=== PATIENT | female | born 1990 | race African-American/Black ===

== ENCOUNTER 2023-10-09 18:19 | Emergency (ER) | payer MEDICARE, MEDICAID, SELFPAY ==
--- NOTE | 2023-10-09 18:30 | ED_ITS ---
HPI - Seizure General Chief Complaint: Seizure Stated Complaint: unwitnessed sz Time Seen by Provider: 10/09/23 18:28 Source: patient and EMS Mode of arrival: EMS Limitations: no limitations History of Present Illness ED Provider: Izzy Quintana NP HPI Narrative: Patient is a 32-year-old female with history of seizure disorder previously on Keppra which was discontinued by her neurologist at the time 3-4 years ago after negative EEG x 1 week presenting to the ED with complaint of seizure prior to arrival. She states that she had an aura of tingling to both hands which is abnormal for her. She reports that after seizure lessened, she used her [employer] to call her brother for help. EMS reported some mild seizure-like activity on their arrival. Patient states that she was on her bed the entire time and did not fall to the floor. She denies any urinary incontinence. Denies recent illness but does report recent increased stressors including housing situation. Denies any drug or alcohol use [employer]. Denies headache or vision changes. Denies recent fevers. Denies any chest pain or dyspnea. MD complaint: seizure Onset (ago): minute(s) Description of Episode: tonic-clonic movement Duration of episode: 2 -: minutes(s) Witnessed: Yes - by Other (brother) Trauma: No Seizure History: Yes Place: Home Possible Precipitating Event: stress Associated symptoms: denies other symptoms Treatments prior to arrival: other (zofran from ems) Related Data Previous Rx's ?Medication ?Instructions ?Recorded magnesium oxide 400 mg PO DAILY #3 caps 10/10/23 Allergies Allergy/AdvReac Type Severity Reaction Status Date / Time No Known Allergies Allergy Verified 10/09/23 18:39 Review of Systems 2 Review of Systems: As per HPI. Yes all other systems are reviewed and are negative Constitutional: Constitutional: Reports as per HPI PMF Social History Social History Alcohol intake: current Alcohol intake frequency: a few times a month Alcohol type: hard liquor Smoked in Last 30 Days: No Use of substances other than those prescribed or required for medical reasons: No Advance Directives: No Advance Directives Information Provided: No Do you have a plan to hurt others: No Plan Patient : No Physical Exam 2 Vital Signs: Vital Signs: Last Vital Signs Temp 97.8 F 10/09/23 23:03 Pulse 92 10/09/23 23:03 Resp 16 10/09/23 23:03 BP 127/81 10/09/23 23:03 Pulse Ox 99 10/09/23 18:35 O2 Del Method Room Air 10/09/23 23:03 BMI result Body Mass Index 23.1 Vital signs have been reviewed and appear to be correct. Blood pressure normal. Heart rate normal. Respiratory rate normal. Temperature normal. Oxygen saturation normal. Const: General: cooperative, healthy appearing and no acute distress O rientation/consciousness: oriented to person, oriented to place, oriented to time and patient oriented x3 Limitations: no limitations HEENT: Head: Yes normocephalic and Yes atraumatic Ears: external ears normal General nose exam: Normal external nose present Face and sinus: Yes face symmetric Mouth: oropharynx normal and moist mucous membranes Throat: Yes uvula midline Eyes: Pupils: Equal, round and reactive pupils present Neck: Neck: Yes normal visual inspection and Yes supple Resp: Effort & Inspection: normal respiratory effort and able to speak in complete sentences Auscultation: clear to auscultation bilaterally Cardio: Rate: regular rate Rhythm: regular rhythm Heart sounds: S1 normal heart sound present and S2 normal heart sound present GI: Palpation (GI): Soft to palpation and nontender Auscultation: n ormoactive bowel sounds : General: Yes no CVA tenderness Back/Spine/Pelvis: Back: no CVA tenderness Skin: General skin exam: elasticity normal and turgor normal Neuro: General: oriented to person, oriented to place, oriented to time, patient oriented x3, moves all extremities, no focal motor deficits and CN's II- XI intact bilaterally Cranial nerves: Yes Equal, round and reactive pupils present Cognition (Neuro): normal cognition Extrem: General: Yes full ROM, Yes no pedal edema and Yes no calf tenderness Psych: Mental Status: mental status grossly normal Affect: Anxious affect present Thought process: Normal thought process present Medications Administered Discontinued Medications Generic Name Dose Route Start Last Admin Trade Name Freq PRN Reason Stop Dose Admin Acetaminophen 975 mg 10/09/23 20:16 10/09/23 20:24 Acetaminophen 325 Mg Tablet PO 10/09/23 20:17 975 mg ONCE ONE Administration Magnesium Sulfate 2 gm in 50 mls @ 25 mls/hr 10/09/23 20:20 10/09/23 22:00 Magnesium Sulfate/H2o IV 10/09/23 22:19 Infused ONCE ONE Infusion Lorazepam 1 mg 10/09/23 20:16 10/09/23 20:24 Lorazepam 1 Mg Tablet PO 10/09/23 20:17 1 mg ONCE ONE Administration Medical Decision Making Medical Decision Making [facility] Narrative: Patient is a 32-year-old female with history of seizure disorder previously on Keppra which was discontinued by her neurologist at the time 3-4 years ago after negative EEG x 1 week presenting to the ED with complaint of seizure prior to arrival. On exam patient is awake, A+Ox3, VS WNL, afebrile, normal neurological exam without focal deficits, physical exam findings as above. Given reported symptoms and physical exam findings, initial differential includes electrolyte abnormality, viral infection, toxin, etoh withdrawal, pseudoseizure. Labs notable for hypomagnesemia, normal lactic, mildly elevated LFTs, mild anemia. IV magnesium ordered as well as lorazepam for anxiety and acetaminophen for headache which developed while in the ED. Magnesium level rechecked and now within normal limits. Will discharge patient home on oral magnesium for 3 days and have her follow-up with PCP for recheck of labs this week. Will refer to Neurology for further evaluation of symptoms. Given reported recent stressors and anxiety, feel may have been pseudo seizure. Return precautions discussed with patient. Patient verbalized understanding of and agreement with plan. Differential Diagnosis Differential Diagnoses: The differential diagnosis associated with the presentation includes As per [facility]. Admission/Observation Consideration of admission/observation: Escalation of care including admission/observation considered Patient would have been admitted to the hospital had their work up had any findings where hospital admission was appropriate and their clinical presentation warranted hospital admission. Lab Data [facility] Lab Attestation statement: I reviewed the patient's lab results. as per [facility] 10/09/23 19:43 10/09/23 19:43 Labs: Lab Results 10/09/23 10/10/23 Range/Units 19:43 00:18 WBC 5.5 (4.8-10.8) X10*3/uL RBC 3.22 L (4.20-5.50) X10*6/uL Hgb 11.1 L (12.0-16.0) g/dl Hct 31.6 L (37.0-47.0) % MCV 98.1 H (80.0-98.0) fL MCH 34.5 H (27.0-33.0) pg MCHC 35.1 H (31.0-35.0) g/dl RDW 13.4 (11.0-16.0) % Plt Count 241 (160-400) X10*3/uL MPV 8.9 L (9.4-12.3) fL Immature Gran % (Auto) 0.2 (0.0-0.4) % Neut % (Auto) 80.4 H (45-73) % Lymph % (Auto) 11.7 L (20-40) % [place] % (Auto) 7.0 (2-11) % Eos % (Auto) 0.0 (0-4) % Baso % (Auto) 0.7 (0-2) % Lymph # (Auto) 0.7 L (1.2-4.9) X10*3/uL [place] # (Auto) 0.4 (0.1-1.2) X10*3/uL Eos # (Auto) 0.0 (0.0-0.4) X10*3/uL Baso # (Auto) 0.0 (0.0-0.2) X10*3/uL Abs Immat Gran (auto) 0.01 (0.00-0.03) X10*3/uL Absolute Neuts (auto) 4.5 (2.0-8.3) x10*3/uL Absolute Nucleated RBC 0.000 (0.0-0.012) X10*3/uL Nucleated RBC % (auto) 0.0 (0.0-0.2) /100WBC Sodium 143 (135-145) mmol/L Potassium 3.3 (3.3-5.1) mmol/L Chloride 104 (96-108) mmol/L Carbon Dioxide 20 L (22-29) mmol/L Anion Gap 22 H (12-20) BUN 14 (9-16) mg/dL Creatinine 0.79 (0.5-1.4) mg/dL Estim Creat Clear Calc 104.0 Estimated GFR > 60 Random Glucose 93 (60-115) mg/dL Lactic Acid 1.7 (0.5-2.0) mmol/L Calcium 8.8 (8.4-10.2) mg/dL Magnesium 1.1 L* 1.9 (1.6-2.6) mg/dL Total Bilirubin 0.7 (0.0-1.0) mg/dL AST 62 H (5-31) U/L ALT 46 H (0-31) U/L Alkaline Phosphatase 76 (39-117) U/L Total Protein 7.6 (6.5-8.0) g/dL Albumin 4.6 (3.5-5.0) g/dL Beta HCG, Quant < 2 mIU/mL Ethyl Alcohol < 10 mg/dL Influenza Type A (PCR) NEGATIVE (Negative) Influenza Type B (PCR) NEGATIVE (Negative) RSV RNA Qual (PCR) NEGATIVE (Negative) SARS-CoV-2 RNA (RT-PCR) NEGATIVE (Negative) Independent Interpretation I performed an independent interpretation of an: EKG (normal sinus rhythm with sinus arrhythmia, rate 73 bpm, normal DC interval ) External Record Review External record reviewed: Inpatient record, Office record and Outpatient record Prescription Management I considered prescription management with: Other Discharge Plan Discharge Clinical Impression: Hypomagnesemia, Anxiety Patient Disposition: Home, Self-Care Instructions: Hypomagnesemia (ED) Additional Instructions: You were evaluated in the emergency department today after seizure-like activity. Your labs showed that your magnesium level was significantly low. You were given IV magnesium in the emergency department and your levels were rechecked. You are being prescribed oral magnesium for the next 3 days. Please follow-up with your primary care provider to have your magnesium level rechecked this week. You are being referred to a neurologist for further evaluation of your symptoms. Please call their office to schedule an appointment, THEY WILL NOT CALL YOU. Return to the emergency department if you have additional seizures, difficulty walking or moving your arms or legs, slurred speech, difficulty with normal activities, abnormal behavior, vision changes or any other concerning symptoms. Prescriptions: New magnesium oxide 400 mg magnesium capsule 400 mg PO DAILY Qty: 3 0RF Referrals: Morteza Billy MD [Physician] - Print Language: Ukrainian
[2023-10-09 18:35] VITALS: BP 129/83; BP 158/82; PULSE 106; PULSE 94; RESP 20; TEMP 36.8; O2SAT 98; O2SAT 99; BMI 23.1
--- NOTE | 2023-10-09 18:42 | ECG_ITS ---
Test Reason : SEIZURE Blood Pressure : / mmHG Vent. Rate : 073 BPM Atrial Rate : 073 BPM P-R Int : 148 ms QRS Dur : 090 ms QT Int : 432 ms P-R-T Axes : 074 072 069 degrees QTc Int : 475 ms Normal sinus rhythm with sinus arrhythmia Normal ECG No previous ECGs available Referred By: Ness Quintana Electronically Signed By:RHETT MCGREGOR MD
[2023-10-09 19:48] LABS: MANUAL DIFF FLAG NO
[2023-10-09 19:49] LABS: Basophils Percent Auto 0.7 % (0-2); Hematocrit 31.6 % (37.0-47.0); Hemoglobin 11.1 g/dl (12.0-16.0); Imm Gran Abs Auto 0.01 X10*3/uL (0.00-0.03); Imm Gran Pct Auto 0.2 % (0.0-0.4); Lymphocytes Absolute Auto 0.7 X10*3/uL (1.2-4.9); Lymphocytes Percent Auto 11.7 % (20-40); Mean Corpuscular HGB Conc 35.1 g/dl (31.0-35.0); Mean Corpuscular Hemoglobin 34.5 pg (27.0-33.0); Mean Corpuscular Volume 98.1 fL (80.0-98.0); Mean Platelet Volume 8.9 fL (9.4-12.3); Monocytes Absolute Auto 0.4 X10*3/uL (0.1-1.2); Neutrophils Absolute Auto 4.5 x10*3/uL (2.0-8.3); Neutrophils Percent Auto 80.4 % (45-73); Platelet Count 241 X10*3/uL (160-400); Red Blood Count 3.22 X10*6/uL (4.20-5.50); Red Cell Distribution Width 13.4 % (11.0-16.0); White Blood Count 5.5 X10*3/uL (4.8-10.8)
[2023-10-09 20:08] LABS: Lactic Acid 1.7 mmol/L (0.5-2.0)
[2023-10-09 20:21] LABS: Alanine Aminotransferase 46 U/L (0-31); Albumin Level 4.6 g/dL (3.5-5.0); Alkaline Phosphatase 76 U/L (39-117); Anion Gap 22 (12-20); Aspartate Amino Transferase 62 U/L (5-31); Bilirubin Total 0.7 mg/dL (0.0-1.0); Blood Urea Nitrogen 14 mg/dL (9-16); Calcium 8.8 mg/dL (8.4-10.2); Carbon Dioxide 20 mmol/L (22-29); Chloride 104 mmol/L (96-108); Estimated Glomerular Filt Rate > 60; Ethanol < 10 mg/dL; Glucose Random 93 mg/dL (60-115); HCG Quantitative < 2 mIU/mL; Magnesium 1.1 mg/dL (1.6-2.6); Potassium 3.3 mmol/L (3.3-5.1); Sodium 143 mmol/L (135-145); Total Protein 7.6 g/dL (6.5-8.0)
[2023-10-09] MEDS: Acetaminophen 325 MG TABLET 975 MG PO (20:24)
[2023-10-09] MEDS: LORazepam 1 MG TABLET PO (20:24)
[2023-10-09 20:25] LABS: Influenza A PCR NEGATIVE (Negative); Influenza B PCR NEGATIVE (Negative); Resp Syncy Virus RNA Qual PCR NEGATIVE (Negative); SARS COV2 PCR INHOUSE NEGATIVE (Negative)
[2023-10-09] MEDS: Magnesium Sulfate/H2O 2 GM/50 ML PIGGYBACK IV (20:29)
[2023-10-09 23:03] VITALS: BP 127/81; PULSE 92; RESP 16; TEMP 36.6
[2023-10-10 00:36] LABS: Magnesium 1.9 mg/dL (1.6-2.6)
[2023-10-10 01:13] VITALS: BP 128/88; PULSE 84; RESP 16; TEMP 36.8; O2SAT 99
== END 2023-10-10 01:14 | disposition home or self-care (01) ==
PROVIDERS: Registered Nurse Emergency; Emergency Provider Emergency Medicine; PCP Student in an Organized Health Care Education/Training Program
DX: E83.42 Hypomagnesemia (principal); F41.9 Anxiety disorder, unspecified; R56.9 Unspecified convulsions; R20.2 Paresthesia of skin; Z03.818 Encounter for observation for suspected exposure to other biological agents ruled out
CPT/HCPCS: 0241U; 36415; 80053; 80307; 83605; 83735; 84702; 85025; 93005; 96365; 96366; 99284; 99285; J3475

== ENCOUNTER → 2023-10-09 18:42 | Outpatient (BNV) | payer MEDICARE, MEDICAID, SELFPAY | PROVIDERS: Emergency Provider Emergency Medicine; PCP Student in an Organized Health Care Education/Training Program; Visit Provider Internal Medicine Cardiovascular Disease | DX: R56.9 Unspecified convulsions (principal) | CPT/HCPCS: 93010 ==

== ENCOUNTER 2023-10-15 07:34 | Emergency (ER) | payer MEDICARE, MEDICAID, SELFPAY ==
[2023-10-15 07:45] VITALS: BP 116/83; BP 99/70; PULSE 81; PULSE 94; RESP 14; TEMP 36.8; O2SAT 100; O2SAT 97; BMI 25.2
--- NOTE | 2023-10-15 07:46 | ED_ITS ---
HPI - General Adult General Chief complaint: Seizure Stated complaint: SEIZURE Time Seen by Provider: 10/15/23 07:46 History of Present Illness HPI narrative: The patient is a 32-year-old female who was treated for a seizure disorder several years ago. She says that she 1st experienced seizure-like activity at the age of 24 and was put on levetiracetam. About 3 or 4 years ago she was taken off her levetiracetam because she had not had a seizure for a long time and apparently all of her EEG studies were negative. She was off antiepileptic medications for 3 or 4 years but presented to the emergency room here 6 days ago following what might have been a seizure at home. She was found to have a magnesium of 1.1. Her magnesium was repleted and she was discharged on oral magnesium and advised to follow up with Dr. Billy of Neurology. She was not restarted on antiepileptic medication. The patient says that this morning she was in the bathroom when she felt unwell in a manner consistent with what she describes as her preictal aura. She then apparently had a seizure and woke up on the floor. She lives with a brother who called 911. Apparently she had a 2nd seizure with paramedics. She was given 1 mg of midazolam. She was awake and alert when she arrived here. She was complaining of a headache that she said was typical of her postictal state. The patient denied any sense of having bitten her tongue but she says that she has been incontinent of urine. Immediately after my initial interview she started to have abnormal movements possibly consistent with seizure activity. She was also tachycardic. We checked a blood sugar which was 140. The abnormal movements lasted for about 3- 4 minutes and terminated before she was given 5 mg of IV midazolam. When the abnormal movements terminated she seemed acutely disoriented but did not have a frankly diminished level of consciousness typical of a postictal state. Related Data Previous Rx's ?Medication ?Instructions ?Recorded magnesium oxide 400 mg PO DAILY #3 caps 10/10/23 levetiracetam 1,000 mg tablet 1,000 mg PO BID #60 tabs 10/15/23 Allergies Allergy/AdvReac Type Severity Reaction Status Date / Time No Known Allergies Allergy Verified 10/15/23 07:50 Review of Systems 2 Review of Systems: Yes all other systems are reviewed and are negative PMFSH Social History Social History Alcohol intake: current Alcohol intake frequency: holidays/special occasions only Alcohol type: hard liquor Smoked in Last 30 Days: No Substance Use Type: Marijuana Substance Use Frequency: Occasionally Last Used Substance: Weeks (ago) Advance Directives: No Advance Directives Information Provided: No Do you have a plan to hurt others: No Plan Physical Exam ED Vital Signs: Vital Signs - 24 hr 10/15/23 07:45 10/15/23 11:21 10/15/23 13:28 Temperature 98.3 F 97.5 F Pulse Rate 81 85 Respiratory Rate 14 14 14 Blood Pressure 116/83 135/88 Pulse Oximetry 97 99 Oxygen Delivery Method Room Air Room Air BMI result Body Mass Index 25.2 Const Other: When I 1st encountered the patient she was awake and alert. She seemed mildly photophobic but otherwise she does not seem in distress. Her mental status seemed clear. HENMT Other: Face was symmetrical. No intraoral injury. Eyes Other: Pupils are round equal, conjunctivae are clear, extraocular movements intact Neck Other: No adenopathy, neck is supple Resp Effort & Inspection: normal respiratory effort Auscultation: clear to auscultation bilaterally Cardio Rate: regular rate Rhythm: regular rhythm Heart sounds: S1 normal heart sound present and S2 normal heart sound present GI Other: Abdomen is soft and nontender Skin Other: Skin was dry and unremarkable Neuro Other: The patient was awake and alert. Pupils are round, equal, and reactive, extraocular movements intact, face was symmetrical, speech was clear, she moves all 4 extremities normally and symmetrically. She was neurologically intact although somewhat photophobic. Extrem Other: No calf swelling or tenderness, no asymmetry, no edema Medications Administered Discontinued Medications Generic Name Dose Route Start Last Admin Trade Name Freq PRN Reason Stop Dose Admin Sodium Chloride 1,000 mls @ 999 mls/hr 10/15/23 08:00 10/15/23 09:54 Ns IV 10/15/23 09:00 Infused .Q1H1M DAV Infusion Levetiracetam 1,500 mg in 100 mls @ 400 mls/hr 10/15/23 08:07 10/15/23 08:30 Keppra IV 10/15/23 08:21 Infused ONCE ONE Infusion Magnesium Sulfate 2 gm in 50 mls @ 150 mls/hr 10/15/23 08:58 10/15/23 09:19 Magnesium Sulfate/H2o IV 10/15/23 09:17 150 mls/hr ONCE ONE Administration Lactated Ringer's 1,000 mls @ 999 mls/hr 10/15/23 09:30 10/15/23 09:54 Lr IV 10/15/23 10:30 999 mls/hr .Q1H1M DAV Administration Midazolam HCl 5 mg 10/15/23 07:57 10/15/23 08:14 Midazolam Hcl/Pf 2 Mg/2 Ml Vial IVPUSH 10/15/23 07:58 5 mg ONCE ONE Administration Potassium Chloride 40 meq 10/15/23 08:58 10/15/23 09:19 Potassium Chloride Er 20 Meq Tab.Er.Prt PO 10/15/23 08:59 40 meq ONCE ONE Administration Medical Decision Making Medical Decision Making [facility] Narrative: The patient is a 32-year-old female who was on levetiracetam for a possible seizure disorder from approximately the age of 24 to 28. Apparently she was taken off the levetiracetam because her EEG studies were negative. The patient was seen here 6 days ago following a possible seizure. She was not restarted on levetiracetam but was advised to follow up with Neurology. She has been found to have a low magnesium and was prescribed supplemental magnesium. She was brought to the hospital by ambulance after possibly having had 2 episodes of a seizure-like activity at home. She was awake and alert when I saw her. She was complaining of a postictal headache which she described as typical of how she felt after a seizure. Not long after my initial evaluation she announced that she felt like she was going to have another seizure and then had an episode of seizure-like activity that lasted about 3 or 4 minutes and terminated spontaneously. At the end of this episode she seemed acutely disoriented but she did not have the depressed level of consciousness or sonorous respirations typical of a postictal state. My overall impression was that it was difficult to say whether the patient has seizure-like activity was a true seizure or not. Since the episode did not seem volitional and since this is now the 2nd time in 1 week she has presented to the emergency room for evaluation of seizure-like activity I elected to restart levetiracetam. She received IV levetiracetam here. She says that she used to be on 1000 mg b.i.d. levetiracetam at this dosage and she should follow up with Neurology. Somewhat surprisingly the patient was once again hypomagnesemic. Her magnesium was repleted. Lab Data 10/15/23 08:11 10/15/23 08:11 Labs: Lab Results 10/15/23 10/15/23 Range/Units 07:59 08:11 WBC 5.1 (4.8-10.8) X10*3/uL RBC 3.39 L (4.20-5.50) X10*6/uL Hgb 11.8 L (12.0-16.0) g/dl Hct 33.4 L (37.0-47.0) % MCV 98.5 H (80.0-98.0) fL MCH 34.8 H (27.0-33.0) pg MCHC 35.3 H (31.0-35.0) g/dl RDW 14.3 (11.0-16.0) % Plt Count 217 (160-400) X10*3/uL MPV 9.2 L (9.4-12.3) fL Immature Gran % (Auto) 0.2 (0.0-0.4) % Neut % (Auto) 58.3 (45-73) % Lymph % (Auto) 31.5 (20-40) % [place] % (Auto) 9.0 (2-11) % Eos % (Auto) 0.4 (0-4) % Baso % (Auto) 0.6 (0-2) % Lymph # (Auto) 1.6 (1.2-4.9) X10*3/uL [place] # (Auto) 0.5 (0.1-1.2) X10*3/uL Eos # (Auto) 0.0 (0.0-0.4) X10*3/uL Baso # (Auto) 0.0 (0.0-0.2) X10*3/uL Abs Immat Gran (auto) 0.01 (0.00-0.03) X10*3/uL Absolute Neuts (auto) 3.0 (2.0-8.3) x10*3/uL Absolute Nucleated RBC 0.000 (0.0-0.012) X10*3/uL Nucleated RBC % (auto) 0.0 (0.0-0.2) /100WBC VBG pH 7.47 H (7.32-7.43) VBG pCO2 28 mmHg VBG pO2 84 mmHg VBG HCO3 21 L (22-26) mmol/L VBG O2 Saturation 97.0 % VBG Base Excess -1.3 mmol/L Sodium 141 (135-145) mmol/L Potassium 3.0 L (3.3-5.1) mmol/L Chloride 102 (96-108) mmol/L Carbon Dioxide 19 L (22-29) mmol/L Anion Gap 23 H (12-20) BUN 13 (9-16) mg/dL Creatinine 1.06 (0.5-1.4) mg/dL Estim Creat Clear Calc 77.5 Estimated GFR > 60 POC Glucose 142 H (60-115) mg/dL Random Glucose 143 H (60-115) mg/dL Calcium 8.4 (8.4-10.2) mg/dL Magnesium 0.7 L* (1.6-2.6) mg/dL Total Bilirubin 0.7 (0.0-1.0) mg/dL Direct Bilirubin 0.3 (0.0-0.5) mg/dL AST 49 H (5-31) U/L ALT 36 H (0-31) U/L Alkaline Phosphatase 76 (39-117) U/L Total Protein 8.0 (6.5-8.0) g/dL Albumin 4.7 (3.5-5.0) g/dL Ethyl Alcohol < 10 mg/dL Independent Interpretation I performed an independent interpretation of an: EKG Interpretation: Remain E sinus rhythm at 91 beats per minute. No definite acute changes. Discharge Plan Discharge Clinical Impression: Seizure-like activity Patient Disposition: Home, Self-Care Instructions: Recurrent Seizures in Adults (ED) Additional Instructions: It seems as though you may have a recurrence of seizures. You will be restarted on antiepileptic medications. Since you seemed to have a recurrence of seizures you should not drive a car. Additionally you should avoid any activities that might put you in significant danger if you were to have a seizure unexpectedly. Please restart levetiracetam (Keppra). Please take this medication 2 times a day until you were advised otherwise by neurology. Next dose this evening. Please continue the magnesium that you were prescribed at your last visit here. Please contact the neurology office (Dr. Billy) on Tuesday for a follow up appointment soon. Also follow up with your primary care doctor. Return to the emergency room if worse. Prescriptions: New levetiracetam 1,000 mg tablet 1,000 mg PO BID Qty: 60 0RF No Action magnesium oxide 400 mg magnesium capsule 400 mg PO DAILY Qty: 3 0RF Referrals: [facility] [Provider Group] Morteza Billy MD [Physician] - (Seizure-like activity, recurrent) Joyce Pillai MD [Physician] - Interventions: ED Discharge Assessment Last Done: 10/15/23 13:28 Discharge Date/Time: 10/15/23 13:39 Print Language: Ugandan
--- NOTE | 2023-10-15 07:56 | ECG_ITS ---
Test Reason : SEIZURE Blood Pressure : / mmHG Vent. Rate : 091 BPM Atrial Rate : 091 BPM P-R Int : 148 ms QRS Dur : 082 ms QT Int : 388 ms P-R-T Axes : 075 086 055 degrees QTc Int : 477 ms Normal sinus rhythm Possible Left atrial enlargement Borderline ECG When compared with ECG of 09-OCT-2023 19:23, No significant change was found Referred By: Luke Hermosillo Electronically Signed By:RHETT MCGREGOR MD
[2023-10-15] MEDS: Midazolam HCl/PF 2 MG/2 ML VIAL 5 MG IVPUSH (08:14)
[2023-10-15 08:16] LABS: Basophils Percent Auto 0.6 % (0-2); Eosinophils Percent Auto 0.4 % (0-4); Hematocrit 33.4 % (37.0-47.0); Hemoglobin 11.8 g/dl (12.0-16.0); Imm Gran Abs Auto 0.01 X10*3/uL (0.00-0.03); Imm Gran Pct Auto 0.2 % (0.0-0.4); Lymphocytes Absolute Auto 1.6 X10*3/uL (1.2-4.9); Lymphocytes Percent Auto 31.5 % (20-40); MANUAL DIFF FLAG NO; Mean Corpuscular HGB Conc 35.3 g/dl (31.0-35.0); Mean Corpuscular Hemoglobin 34.8 pg (27.0-33.0); Mean Corpuscular Volume 98.5 fL (80.0-98.0); Mean Platelet Volume 9.2 fL (9.4-12.3); Monocytes Absolute Auto 0.5 X10*3/uL (0.1-1.2); Neutrophils Percent Auto 58.3 % (45-73); Platelet Count 217 X10*3/uL (160-400); Red Blood Count 3.39 X10*6/uL (4.20-5.50); Red Cell Distribution Width 14.3 % (11.0-16.0); White Blood Count 5.1 X10*3/uL (4.8-10.8)
[2023-10-15 08:18] LABS: VBG Base Excess -1.3 mmol/L; VBG HCO3 21 mmol/L (22-26); VBG pCO2 28 mmHg; VBG pH 7.47 (7.32-7.43); VBG pO2 84 mmHg
[2023-10-15 08:18] LABS: Venous Blood Gas Refer to POC result
[2023-10-15] MEDS: levETIRAcetam in NaCl (iso-os) 1,500 MG/100 ML PIGGYBACK 400 MG IV (08:18)
[2023-10-15] MEDS: 0.9 % Sodium Chloride 1,000 ML 999 ML IV (08:18)
[2023-10-15 08:42] LABS: Ethanol < 10 mg/dL
[2023-10-15 08:42] LABS: Glucose, Whole Blood 142 mg/dL (60-115)
[2023-10-15 08:46] LABS: Alanine Aminotransferase 36 U/L (0-31); Albumin Level 4.7 g/dL (3.5-5.0); Alkaline Phosphatase 76 U/L (39-117); Anion Gap 23 (12-20); Aspartate Amino Transferase 49 U/L (5-31); Bilirubin Direct 0.3 mg/dL (0.0-0.5); Bilirubin Total 0.7 mg/dL (0.0-1.0); Blood Urea Nitrogen 13 mg/dL (9-16); Calcium 8.4 mg/dL (8.4-10.2); Carbon Dioxide 19 mmol/L (22-29); Chloride 102 mmol/L (96-108); Creatinine Clr Calc Pharmacy 77.5; Estimated Glomerular Filt Rate > 60; Glucose Random 143 mg/dL (60-115); Magnesium 0.7 mg/dL (1.6-2.6); Sodium 141 mmol/L (135-145)
[2023-10-15] MEDS: Potassium Chloride ER 20 MEQ TAB.ER.PRT 40 MEQ PO (09:19)
[2023-10-15] MEDS: Magnesium Sulfate/H2O 2 GM/50 ML PIGGYBACK IV (09:19)
[2023-10-15] MEDS: Lactated Ringers 1,000 ML 999 ML IV (09:54)
[2023-10-15 11:21] VITALS: RESP 14
[2023-10-15 13:28] VITALS: BP 135/88; PULSE 85; RESP 14; TEMP 36.4; O2SAT 99
[2023-10-16 06:33] LABS: Prolactin 7.6 ng/mL
== END 2023-10-15 13:39 | disposition home or self-care (01) ==
PROVIDERS: Emergency Provider Emergency Medicine
DX: R56.9 Unspecified convulsions (principal)
CPT/HCPCS: 36415; 80048; 80076; 80307; 82803; 82947; 83735; 84146; 85025; 93005; 99285; J1953; J2250; J3475; J7120

== ENCOUNTER → 2023-10-15 07:56 | Outpatient (BNV) | payer MEDICARE, MEDICAID, SELFPAY | PROVIDERS: Emergency Provider Emergency Medicine; Visit Provider Internal Medicine Cardiovascular Disease | DX: R56.9 Unspecified convulsions (principal) | CPT/HCPCS: 93010 ==

== ENCOUNTER 2023-10-15 17:29 | Inpatient (IN) | payer MEDICARE, MEDICAID, SELFPAY ==
--- NOTE | 2023-10-15 | EEG_ITS ---
This is a 16-channel digital EEG performed for continuous 2 hours. The patient was reported alert and awake and then also drowsy and sleeping during the tracing. Background EEG rhythm during early part of the tracing was low amplitude fast with no obvious asymmetry or paroxysmal tendency. No sharp waves or spikes were noted. The patient transitioned into mild drowsiness and light sleep with no significant abnormality. No cardiac arrhythmia was noted. IMPRESSION: This EEG did not reveal any significant abnormality. MD ASHLEY Justice/GEOVANY / [phone]
--- NOTE | ~2023-10-15 | CT_ITS ---
EXAMINATION: CT HEAD WITHOUT CONTRAST CLINICAL INFORMATION: Seizures COMPARISON: None. TECHNIQUE: Multidetector volumetric imaging of the head was performed without intravenous contrast material. This CT examination was performed using dose optimization techniques as appropriate, variously including the following: *Automated exposure control *Adjustment of mA and/or kV according to patient size (this includes techniques or standardized protocols for targeted exams where dose is matched to indication/reason for exam; i.e. extremities or head) *Use of iterative reconstruction technique Dose: 579 mGy-cm FINDINGS: There is no evidence of acute intracranial hemorrhage or territorial infarction. No abnormal mass-effect or midline shift is seen. Duval to white matter differentiation is well preserved. No extra axial fluid collections. The ventricles are normal in size and configuration. There is no abnormal attenuation within the brain parenchyma. The soft tissues and osseous structures are normal. The sinuses and mastoid air cells are clear. CT/CT head/brain wo IV con IMPRESSION: No acute intracranial pathology.
[2023-10-15 17:38] VITALS: BP 112/66; BP 150/100; PULSE 120; PULSE 94; RESP 20; TEMP 36.2; O2SAT 98; O2SAT 99; BMI 31.9
--- NOTE | 2023-10-15 18:02 | ED.SEIZURE ---
HPI - Seizure General Chief Complaint: Seizure Stated Complaint: seizuers Time Seen by Provider: 10/15/23 17:35 Source: patient Mode of arrival: EMS History of Present Illness ED Provider: Dr Aguayo HPI Narrative: 32-year-old female who has a prior history of seizures and was being followed by Dr. Billy here at [facility], she had an EEG to re-evaluate her and the decision was made at that time to stop all anti seizure medication. Patient states that she has had significant stressors recently and reports that her mother at the end of March, she takes care of her 2-year-old daughter, states she has not been sleeping well and has had decreased appetite but denies any excessive vomiting, patient does endorse that she drinks alcohol but not frequently and became very upset when I was asking her about her alcohol use and asked whether or not I had been talking to EMS or her brother. Seizure History: Yes Related Data Previous Rx's ?Medication ?Instructions ?Recorded magnesium oxide 400 mg PO DAILY #3 caps 10/10/23 levetiracetam 1,000 mg tablet 1,000 mg PO BID #60 tabs 10/15/23 Allergies Allergy/AdvReac Type Severity Reaction Status Date / Time No Known Allergies Allergy Verified 10/15/23 17:41 Review of Systems Review of Systems: Pertinent positives and negatives as stated in HPI PMFSH Past Medical History Source: nursing notes reviewed Social History Social History Alcohol intake: current Alcohol intake frequency: holidays/special occasions only Alcohol type: hard liquor Substance Use Type: Marijuana Physical Exam Vital Signs: Vital Signs: Last Vital Signs Temp 97.2 F 10/15/23 17:38 Pulse 94 10/15/23 17:38 Resp 20 10/15/23 17:38 BP 112/66 10/15/23 17:38 Pulse Ox 99 10/15/23 17:38 O2 Del Method Room Air 10/15/23 17:38 BMI result Body Mass Index 31.9 VITAL SIGNS: Reviewed. GENERAL: Well developed, well nourished, in no acute distress. HEAD: Normocephalic/atraumatic EYES: PERRLA, EOMI EARS: Ext canals without abnormality NOSE: Nares patent bilateral OROPHARYNX: no oral lesions noted, posterior pharynx clear NECK: Supple, no adenopathy LUNGS: Normal breath sounds. No adventitious sounds or accessory muscle use. SpO2<99> CARDIOVASCULAR: Regular rate and rhythm without noted murmurs ABDOMEN: Soft, non-tender, non-distended with bowel sounds. MUSCULOSKELETAL: No tenderness, deformities, or effusions noted on gross inspection. EXTREMITIES: No cyanosis, clubbing or edema. SKIN: Inspection of the skin reveals no rashes NEUROLOGIC: Alert and oriented x 4. Strength and sensation to light touch were grossly intact x 4. PSYCH: Tearful Medical Decision Making Medical Decision Making MDM Narrative: 32-year-old female with history and clinical presentation, DDX: Concerns raised for possible alcohol withdrawal seizures due to consistently low magnesium levels, no significant vomiting pathologies identified such as anorexia but patient is clearly exhibiting symptoms of depression but denies SI/HI. I did review all lab work from earlier, patient did have magnesium repletion without other associated electrolyte derangements and patient was Keppra loaded and discharged with a prescription as well as referral to follow-up with neurology. I planned to pursue urinalysis to ensure no underlying infectious etiology as well as urine , however patient is exhibiting agitation regarding questions surrounding her use of alcohol, she states she still does not drive and says that she has adequate outpatient resources for her feelings of depression and plans to see her primary care doctor on Tuesday and informs me that this is Dr. Pillai at [facility]. I reviewed Dr. Hermosillo's note and it does appear that he copied the patient's visit over to her primary care doctor as well as providing a referral for Dr. Billy. Patient does not wish to stay for any further workup and is requesting to leave at this time. I informed the patient that I think that she should stick around for further investigation possible admission given persistent seizures and she has adamantly declined this. She is alert and oriented. Differential Diagnosis Differential Diagnoses: The differential diagnosis associated with the presentation includes Please see the discussion above Admission/Observation Consideration of admission/observation: Escalation of care including admission/observation considered Please see the discussion above External Record Review External record reviewed: Outpatient record, Prior outpatient labs and Prior outpatient radiology Critical Care Time Critical Care Time Critical Care Time: Yes Total Critical Care Time: 30 Attestation: I personally attest to this time spent taking care of the patient. Discharge Plan Discharge Clinical Impression: Seizure-like activity, Depression Patient Disposition: Left Against Medical Advice Instructions: Depression (ED), Nonepileptic Seizures (ED) Additional Instructions: 1. You have been provided with a prescription for your seizure like activity at your prior visit, please take this medication as prescribed. 2. You are signing out against medical advice. 3. Copy of this note has been provided to your primary care doctor and a referral was provided to you at the last visit to follow-up with Dr. Billy. Do not hesitate to return to this emergency room if you require any further assistance or resources Prescriptions: No Action magnesium oxide 400 mg magnesium capsule 400 mg PO DAILY Qty: 3 0RF levetiracetam 1,000 mg tablet 1,000 mg PO BID Qty: 60 0RF Referrals: Morteza Billy MD [Physician] - Joyce Pillai MD [Physician] - Stand Alone Forms: Against Medical Advice Print Language: Uruguayan
--- NOTE | 2023-10-15 18:13 | PC.NURSE ---
patient left ama, ambulated off of unit with steady gait
[2023-10-15 19:07] VITALS: BP 111/82; PULSE 85; RESP 18; TEMP 37.1; O2SAT 97
[2023-10-15 19:29] LABS: Appearance Urine Cloudy; Color Urine Dark Yellow; Glucose Urine UA Negative (Negative); Leukocyte Esterase Urine Trace (Negative); Nitrite Urine Negative (Negative); Specific Gravity - Urine 1.025 (1.005-1.025); UMIC TRIGGER UACC YES; Urine Blood Trace (Negative); Urine Ketones Trace mg/dL (Negative); Urine Protein 30 (1+) mg/dL (Neg-Trace)
[2023-10-15 19:30] LABS: UPreg QC Valid YES; Urine Pregnancy NEGATIVE (NEGATIVE)
[2023-10-15 19:34] LABS: Bacteria Urine 3+ (None Seen); WBC Urine 0-5 /HPF (0-5)
[2023-10-15 19:35] VITALS: BP 126/83; PULSE 82; RESP 20; TEMP 37; O2SAT 98
[2023-10-15 19:40] LABS: Amphetamine Screen Urine Not Detected (Not Detect); Barbiturates, Urine Not Detected (Not Detect); Benzodiazepines Screen Urine POSITIVE (Not Detect); Buprenorphine Scr Not Detected (Not Detect); Cannabinoid Screen Urine POSITIVE (Not Detect); Cocaine Screen Urine Not Detected (Not Detect); Fentanyl, urine Not Detected (Not Detect); Methadone Screen, Urine Not Detected (Not Detect); Opiate Screen Urine Not Detected (Not Detect); Oxycodone Screen Urine Not Detected (Not Detect); Phencyclidine Screen Urine Not Detected (Not Detect)
--- NOTE | 2023-10-15 19:43 | PC.NURSE ---
Patient complaints of headache, tingling, tremors, and anxiety. CIWA completed and was 13. Dr. Aguayo notified. Orders to be placed in MAR
[2023-10-15] MEDS: chlordiazePOXIDE HCl 25 MG CAPSULE 50 MG PO (20:20)
[2023-10-15] MEDS: Acetaminophen 325 MG TABLET 650 MG PO (20:20)
[2023-10-15 21:15] VITALS: BP 116/78; PULSE 71; RESP 16; TEMP 37.1; O2SAT 98
[2023-10-15 21:18] VITALS: PULSE 80; RESP 24
--- NOTE | 2023-10-15 23:38 | P.HPHOSP_ITS ---
History of Present Illness Date of Service: 10/15/23 Chief Complaint: Seizure like activity This is a 32-year-old female with pertinent history of ?seziure disorder, mood disorder who presents to the emergency department for evaluation of seizure-like activity. Patient states she was on antiepileptics until about 3-4 years ago when she was taken off of Keppra by her neurologist. Patient initially presented to the ER 1 week ago for seizure-like activity. Magnesium was found to be low and she was sent home. Patient presented again on the day of presentation with 2 episodes of seizure. Had additional questionable episode of seizure-like activity while in the ER. No postictal state as per ER provider. She was loaded with Keppra but decided to leave against medical advice. Patient was initiated on Keppra b.i.d. and asked to follow up with Neurology. Patient returned later in the day with an additional episode of seizure that happened at home. Patient states she has had excessive stressors recently and relapsed with alcohol. Apparently her last drink was about 14 days prior to presentation. Is having nausea, tremors. No hallucinations. No fever, chills, chest discomfort, palpitations, shortness of breath, abdominal pain, changes in urinary or bowel habits. In the emergency department, patient was initiated on phenobarb protocol Review of Systems Constitutional: Constitutional: Reports no additional constitutional complaints Cardiovascular: Cardiovascular: Reports no additional cardiovascular complaints Respiratory: Respiratory: Reports no additional respiratory complaints Gastrointestinal: Gastrointestinal: Reports nausea Genitourinary: Genitourinary: Reports no additional female genitourinary complaints [facility] Medical History Mood disorder Pertinent family history: No family history of early CAD Social History Alcohol intake: current Alcohol intake frequency: a few times a month Alcohol type: hard liquor Use of substances other than those prescribed or required for medical reasons: Unknown Substance Use Type: Marijuana Advance Directives: No Advance Directives Information Provided: No Do you have a plan to hurt others: No Plan Patient : No Meds Allergies Allergy/AdvReac Type Severity Reaction Status Date / Time No Known Allergies Allergy Verified 10/15/23 17:41 Active Medications: Current Medications Pharmacy Consult (Consult Rx Etoh Phenob Im/Po) 1 each MISCELLANE ONCE PRN; Protocol PRN Reason: Consult order Phenobarbital (Phenobarbital 30 Mg Tablet) 30 mg PO BID DAV; Protocol Stop: 10/17/23 21:01 Phenobarbital (Phenobarbital 15 Mg Tablet) 15 mg PO BID DAV; Protocol Stop: 10/19/23 21:01 Phenobarbital (Phenobarbital 15 Mg Tablet) 15 mg PO DAILY DAV; Protocol Stop: 10/21/23 09:01 Phenobarbital Sodium (Phenobarbital Sodium 130 Mg/Ml Vial Im Q3hx2) 140 mg IM Q3H DAV; Protocol Stop: 10/16/23 05:01 Physical Exam Vital Signs and Narrative: Vital Signs: Last Vital Signs Temp 98.8 F 10/15/23 21:15 Pulse 80 10/15/23 21:18 Resp 24 H 10/15/23 21:18 BP 116/78 10/15/23 21:15 Pulse Ox 98 10/15/23 21:15 O2 Del Method Room Air 10/15/23 21:15 BMI result Body Mass Index 31.9 Middle-aged female lying in bed in no distress Neck supple, no JVD Regular rate and rhythm, S1-S2 heard Regular breath sounds bilaterally, no wheezing or crackles appreciated Abdomen soft nontender, no guarding, no rigidity Patient is awake, alert and oriented to self, place, time and person ; no focal motor deficit Psych: Normal mood No pedal edema Results Labs Labs: Laboratory Results - last 24 hr 10/15/23 19:21 Urine Color Dark Yellow Urine Appearance Cloudy Urine pH 6.0 Ur Specific [place] 1.025 Urine Protein 30 (1+) H Urine Glucose (UA) Negative Urine Ketones Trace Urine Blood Trace H Urine Nitrite Negative Ur Leukocyte Esterase Trace H Urine RBC 6-10 H Urine WBC 0-5 Ur Squamous Epith Cells 6-10 Urine Bacteria 3+ Hyaline Casts 3-5 Urine Test NEGATIVE Urine Opiates Screen Not Detected Ur Buprenorphine Scrn Not Detected Ur Oxycodone Screen Not Detected Urine Methadone Screen Not Detected Urine Fentanyl Screen Not Detected Ur Barbiturates Screen Not Detected Ur Phencyclidine Scrn Not Detected Ur Amphetamines Screen Not Detected U Benzodiazepines Scrn POSITIVE H Urine Cocaine Screen Not Detected U Marijuana (THC) Screen POSITIVE H Assessment and Plan (1) Seizure-like activity: Status: Acute Plan This is a 32-year-old female with pertinent history of ?seziure disorder, mood disorder who presents to the emergency department for evaluation of seizure-like activity. #. Seizure-like activity: Unclear if due to true seizures versus PNES. There was also concern for alcohol withdrawal seizures but apparently patient's last drink was 14 days ago. Consulting Neurology and obtaining EEG. Was loaded with Keppra on the day of presentation and also took 1000 mg p.o. Keppra in the eveni ng #. Alcohol use disorder with ?withdrawal: Patient was initiated on phenobarb protocol in the ER. Should be out of the window for alcohol withdrawal if she has seeing the truth that her last drink was 14 days ago. Initiating thiamine and consulting Addiction Team. Monitor CIWA #. Mood disorder: Continue home mood stabilizers #. Hypomagnesemia: Repleted #. Hypokalemia: Repleted #. Macrocytic anemia: Obtaining B12 and folate Med rec pending DVT prophylaxis: Lovenox Full code Quality Stroke Does the patient have a stroke diagnosis?: No VTE Prior VTE?: No VTE Risk Level:: Medical - moderate - high VTE Device Contraindication: Treatment Not Indicated VTE Drug Contraindication: N/A - Med Ordered
[2023-10-15] MEDS: PHENobarbitaL sodium 130 MG/ML IM ONCE 185 MG IM (23:55)
[2023-10-16] VITALS (12 sets, daily range): BP systolic 98–149; BP diastolic 62–88; PULSE 61–90; RESP 10–18; TEMP 36–37.2; O2SAT 94–100; BMI 23.9
[2023-10-16] MEDS: Potassium Chloride Packet 20 MEQ PACKET 40 MEQ PO (00:37)
[2023-10-16] MEDS: Thiamine HCL 100 MG in 0.9 % Sodium Chloride 100 ML 202 MG IV ×2 (00:38→08:31)
[2023-10-16] MEDS: 0.9 % Sodium Chloride Flush 3 ML SYRINGE IVFLUSH ×4 (00:39→22:25)
[2023-10-16] MEDS: Enoxaparin Sodium 40 MG/0.4 ML SYRINGE SUBCUT ×2 (00:44→22:17)
[2023-10-16] MEDS: Melatonin 3 MG TABLET 6 MG PO (00:48)
[2023-10-16] MEDS: PHENobarbitaL sodium 130 MG/ML VIAL IM Q3Hx2 140 MG IM ×2 (02:50→06:32)
[2023-10-16 05:44] LABS: MANUAL DIFF FLAG NO
[2023-10-16 05:48] LABS: Basophils Percent Auto 0.5 % (0-2); Eosinophils Absolute Auto 0.1 X10*3/uL (0.0-0.4); Eosinophils Percent Auto 1.3 % (0-4); Hematocrit 27.4 % (37.0-47.0); Hemoglobin 9.4 g/dl (12.0-16.0); Lymphocytes Absolute Auto 1.9 X10*3/uL (1.2-4.9); Lymphocytes Percent Auto 49.9 % (20-40); Mean Corpuscular HGB Conc 34.3 g/dl (31.0-35.0); Mean Corpuscular Hemoglobin 34.7 pg (27.0-33.0); Mean Corpuscular Volume 101.1 fL (80.0-98.0); Mean Platelet Volume 9.9 fL (9.4-12.3); Monocytes Absolute Auto 0.4 X10*3/uL (0.1-1.2); Monocytes Percent Auto 11.3 % (2-11); Neutrophils Absolute Auto 1.4 x10*3/uL (2.0-8.3); Platelet Count 178 X10*3/uL (160-400); Red Blood Count 2.71 X10*6/uL (4.20-5.50); Red Cell Distribution Width 14.6 % (11.0-16.0); White Blood Count 3.7 X10*3/uL (4.8-10.8)
[2023-10-16 06:05] LABS: Anion Gap 11 (12-20); Blood Urea Nitrogen 9 mg/dL (9-16); Calcium 7.8 mg/dL (8.4-10.2); Carbon Dioxide 24 mmol/L (22-29); Chloride 107 mmol/L (96-108); Creatinine Clr Calc Pharmacy 95.2; Estimated Glomerular Filt Rate > 60; Glucose Random 86 mg/dL (60-115); Magnesium 1.4 mg/dL (1.6-2.6); Potassium 3.1 mmol/L (3.3-5.1); Sodium 139 mmol/L (135-145)
[2023-10-16] MEDS: PHENobarbitaL 30 MG TABLET PO ×2 (08:32→22:18)
[2023-10-16] MEDS: Magnesium Oxide 400 MG TABLET 800 MG PO ×3 (08:58→22:17)
[2023-10-16] MEDS: Potassium Chloride ER 20 MEQ TAB.ER.PRT 40 MEQ PO (08:59)
[2023-10-16] MEDS: Magnesium Sulfate/H2O 2 GM/50 ML PIGGYBACK IV ×2 (08:59→16:43)
--- NOTE | 2023-10-16 09:04 | PHA.MEDREC ---
Addendum entered by Addie Guerra RPh 10/16/23 09:21: Called [facility] to confirm that pt picked up the levetiracetam yesterday 10/15/23. Original Note: Pharmacy Consult ? Medication Reconciliation Pharmacy has completed the medication reconciliation. Spoke to patient and confirmed medication list. Patient confirmed that she's on levetiracetam 1000 mg bid and last dose was taken last night. She said her last injection of medroxyprogesterone was in august so she's not due for it again until november.
--- NOTE | 2023-10-16 09:26 | P.PNIM_ITS ---
Subjective Subjective Date of Service: 10/16/23 Interval History: no further events Physical Exam 2 Vital Signs: Vital Signs: Last Vital Signs Temp 97.9 F 10/16/23 06:37 Pulse 70 10/16/23 06:37 Resp 12 10/16/23 06:37 BP 107/77 10/16/23 06:37 Pulse Ox 97 10/16/23 06:37 O2 Del Method Room Air 10/16/23 06:37 BMI result Body Mass Index 31.9 General: AO X 3, no acute distress Resp: CTA bilateral, no accessory muscles used CVS: S1,S2,RRR GI: soft, non tender, non distended Neuro: motor grossly intact, alert Psych: appropriate affect, appropriate insight Objective Data Active Medications Acetaminophen (Acetaminophen 325 Mg Tablet) 650 mg PO Q6H PRN PRN Reason: Pain, Mild (Pain Scale 1-3) Enoxaparin Sodium (Enoxaparin Sodium 40 Mg/0.4 Ml Syringe) 40 mg SUBCUT Q24H [facility] Last Admin: 10/16/23 00:44 Dose: 40 mg Documented By: LAURIE Hydroxyzine HCl (Hydroxyzine Hcl 25 Mg Tablet) 25 mg PO Q8H PRN PRN Reason: anxiety Thiamine HCl 100 mg/ Sodium (Chloride) 101 mls @ 202 mls/hr IV DAILY [facility] Last Admin: 10/16/23 08:31 Dose: 202 mls/hr Documented By: JENNA Magnesium Sulfate (Magnesium Sulfate/H2o) 2 gm in 50 mls @ 25 mls/hr IV ONCE ONE Stop: 10/16/23 10:25 Last Admin: 10/16/23 08:59 Dose: 25 mls/hr Documented By: JENNA Levetiracetam (Levetiracetam 1,000 Mg Tablet) 1,000 mg PO BID [facility] Magnesium Oxide (Magnesium Oxide 400 Mg Tablet) 800 mg PO TID [facility] Last Admin: 10/16/23 08:58 Dose: 800 mg Documented By: JENNA Melatonin (Melatonin 3 Mg Tablet) 6 mg PO BEDTIME PRN PRN Reason: Insomnia Last Admin: 10/16/23 00:48 Dose: 6 mg Documented By: LAURIE Ondansetron HCl (Ondansetron Hcl 4 Mg/2 Ml Vial) 4 mg IVPUSH Q8H PRN PRN Reason: Nausea and Vomiting Pharmacy Consult (Consult Rx Etoh Phenob Im/Po) 1 each MISCELLANE ONCE PRN; Protocol PRN Reason: Consult order Phenobarbital (Phenobarbital 30 Mg Tablet) 30 mg PO BID [facility]; Protocol Stop: 10/17/23 21:01 Last Admin: 10/16/23 08:32 Dose: 30 mg Documented By: JENNA Phenobarbital (Phenobarbital 15 Mg Tablet) 15 mg PO BID [facility]; Protocol Stop: 10/19/23 21:01 Phenobarbital (Phenobarbital 15 Mg Tablet) 15 mg PO DAILY [facility]; Protocol Stop: 10/21/23 09:01 Sertraline HCl (Sertraline Hcl 50 Mg Tablet) 50 mg PO DAILY [facility] Sodium Chloride (0.9 % Sodium Chloride Flush 3 Ml Syringe) 3 ml IVFLUSH QSHIFT [facility] Last Admin: 10/16/23 08:30 Dose: 3 ml Documented By: JENNA Valacyclovir HCl (Valacyclovir Hcl 500 Mg Tablet) 500 mg PO DAILY [facility] Labs 10/16/23 05:11 10/16/23 05:11 Labs: Laboratory Results - last 24 hr 10/15/23 10/16/23 19:21 05:11 MCV 101.1 H MCH 34.7 H MCHC 34.3 RDW 14.6 Plt Count 178 MPV 9.9 Immature Gran % (Auto) 0.0 Neut % (Auto) 37.0 L Lymph % (Auto) 49.9 H Ralls % (Auto) 11.3 H Eos % (Auto) 1.3 Baso % (Auto) 0.5 Lymph # (Auto) 1.9 Ralls # (Auto) 0.4 Eos # (Auto) 0.1 Baso # (Auto) 0.0 Abs Immat Gran (auto) 0.00 Absolute Neuts (auto) 1.4 L Absolute Nucleated RBC 0.000 Nucleated RBC % (auto) 0.0 Anion Gap 11 L Estim Creat Clear Calc 95.2 Estimated GFR > 60 Random Glucose 86 Calcium 7.8 L D Magnesium 1.4 L* Urine Color Dark Yellow Urine Appearance Cloudy Urine pH 6.0 Ur Specific Lindsay 1.025 Urine Protein 30 (1+) H Urine Glucose (UA) Negative Urine Ketones Trace Urine Blood Trace H Urine Nitrite Negative Ur Leukocyte Esterase Trace H Urine RBC 6-10 H Urine WBC 0-5 Ur Squamous Epith Cells 6-10 Urine Bacteria 3+ Hyaline Casts 3-5 Urine Test NEGATIVE Urine Opiates Screen Not Detected Ur Buprenorphine Scrn Not Detected Ur Oxycodone Screen Not Detected Urine Methadone Screen Not Detected Urine Fentanyl Screen Not Detected Ur Barbiturates Screen Not Detected Ur Phencyclidine Scrn Not Detected Ur Amphetamines Screen Not Detected U Benzodiazepines Scrn POSITIVE H Urine Cocaine Screen Not Detected U Marijuana (THC) Screen POSITIVE H Assessment and Plan (1) Seizure-like activity: Status: Acute Plan 32F PMH alcohol dependence, questionable seizure disorder, mood disorder presented with seizure-like activity Seizure-like activity Question epileptic versus nonepileptic seizure, continue Keppra, neuro eval Alcohol dependence with possible withdrawal Continue phenobarbital Monitor CIWA Acute hypomagnesemia and hypokalemia Replace and monitor Mood disorder Sertraline DVT prophylaxis with Lovenox Full Code Reason for continued hospitalization: Treating hypomagnesemia, neuro eval pending Quality Stroke Does the patient have a stroke diagnosis?: No VTE Prior VTE?: No VTE Risk Level:: Medical - moderate - high VTE Device Contraindication: Treatment Not Indicated VTE Drug Contraindication: N/A - Med Ordered
[2023-10-16] MEDS: levETIRAcetam 1,000 MG TABLET 1000 MG PO ×2 (10:22→22:18)
[2023-10-16] MEDS: Sertraline HCL 50 MG TABLET PO (10:22)
[2023-10-16] MEDS: valACYclovir HCL 500 MG TABLET PO (10:22)
[2023-10-16 11:28] LABS: Folate 12.3 ng/mL (> or = 4.0); Vitamin B12 > 2000 pg/mL (200-900)
--- NOTE | 2023-10-16 12:10 | MHC.CM.PN ---
[facility] DELIVERED. PATIENT LIVES IN AN APT W/ HER BROTHER & DAUGHTER. FUNCTIONALLY INDEPENDENT. RECEIVES IN HOME MENTAL HEALTH SERVICES INCLUDING THERAPY AND EMOTIONAL SUPPORT THROUGH [employer]. PCP Joyce Pillai MD NO HCP. CM PROVIDED EDUCATION AND OFFERED ASSISTANCE. PATIENT DECLINED. DP: RETURN HOME W/ FAMILY & [employer] MENTAL HEALTH SERVICES VIA [facility]. CM WILL CONTINUE TO FOLLOW.
--- NOTE | 2023-10-16 14:56 | PC.NURSE ---
Pt seeming to do well. No s/s seizures, pt emotional r/t her mother passing away from having a seizure. Listening and support given. Encouraged to ask staff for assistance with any needs.
--- NOTE | 2023-10-16 16:13 | PM.NEUROCN ---
History of Present Illness Data of Consult Service Date: 10/16/23 Primary Care Provider: Unknown Physician HPI Reason for consult: ? of Seizures vs stress induced sz And alcohol abuse This is a 32-year-old female with pertinent history of ?seziure disorder, mood disorder who presents to the emergency department for evaluation of seizure-like activity. Patient states she was on antiepileptics until about 3-4 years ago when she was taken off of Keppra by her neurologist. Patient initially presented to the ER 1 week ago for seizure-like activity. Magnesium was found to be low and she was sent home. Patient presented again on the day of presentation with 2 episodes of seizure. Had additional questionable episode of seizure-like activity while in the ER. No postictal state as per ER provider. She was loaded with Keppra but decided to leave against medical advice. Patient was initiated on Keppra b.i.d. and asked to follow up with Neurology. Patient returned later in the day with an additional episode of seizure that happened at home. Patient states she has had excessive stressors recently and relapsed with alcohol. Apparently her last drink was about 14 days prior to presentation. Is having nausea, tremors. No hallucinations.1 I want to be examined her, she was postictal from having had a generalized convulsion that was witnessed. According had been called earlier. The patient had a lot of secretions was gurgling around restless with wide staring, eyes rolling eye movements and turning from side to side and moaning. PMFSH Past Medical History Medical History Mood disorder Social History Social History Household Members: Family Housing: House Do you presently have visiting nurse or other home services: No Alcohol intake: current Alcohol intake frequency: a few times a month Alcohol type: hard liquor Patient Tobacco Use Status: Never used Tobacco Substance Use Type: Marijuana service: No Meds Allergies Allergy/AdvReac Type Severity Reaction Status Date / Time No Known Allergies Allergy Verified 10/15/23 17:41 Active Medications: Current Medications Acetaminophen (Acetaminophen 325 Mg Tablet) 650 mg PO Q6H PRN PRN Reason: Pain, Mild (Pain Scale 1-3) Enoxaparin Sodium (Enoxaparin Sodium 40 Mg/0.4 Ml Syringe) 40 mg SUBCUT Q24H [facility] Last Admin: 10/16/23 00:44 Dose: 40 mg Hydroxyzine HCl (Hydroxyzine Hcl 25 Mg Tablet) 25 mg PO Q8H PRN PRN Reason: anxiety Thiamine HCl 100 mg/ Sodium (Chloride) 101 mls @ 202 mls/hr IV DAILY [facility] Last Infusion: 10/16/23 09:55 Dose: Infused Levetiracetam (Levetiracetam 1,000 Mg Tablet) 1,000 mg PO BID [facility] Last Admin: 10/16/23 10:22 Dose: 1,000 mg Magnesium Oxide (Magnesium Oxide 400 Mg Tablet) 800 mg PO TID [facility] Last Admin: 10/16/23 14:10 Dose: 800 mg Melatonin (Melatonin 3 Mg Tablet) 6 mg PO BEDTIME PRN PRN Reason: Insomnia Last Admin: 10/16/23 00:48 Dose: 6 mg Ondansetron HCl (Ondansetron Hcl 4 Mg/2 Ml Vial) 4 mg IVPUSH Q8H PRN PRN Reason: Nausea and Vomiting Pharmacy Consult (Consult Rx Etoh Phenob Im/Po) 1 each MISCELLANE ONCE PRN; Protocol PRN Reason: Consult order Phenobarbital (Phenobarbital 30 Mg Tablet) 30 mg PO BID [facility]; Protocol Stop: 10/17/23 21:01 Last Admin: 10/16/23 08:32 Dose: 30 mg Phenobarbital (Phenobarbital 15 Mg Tablet) 15 mg PO BID [facility]; Protocol Stop: 10/19/23 21:01 Phenobarbital (Phenobarbital 15 Mg Tablet) 15 mg PO DAILY [facility]; Protocol Stop: 10/21/23 09:01 Sertraline HCl (Sertraline Hcl 50 Mg Tablet) 50 mg PO DAILY [facility] Last Admin: 10/16/23 10:22 Dose: 50 mg Sodium Chloride (0.9 % Sodium Chloride Flush 3 Ml Syringe) 3 ml IVFLUSH QSHIFT [facility] Last Admin: 10/16/23 10:57 Dose: 3 ml Valacyclovir HCl (Valacyclovir Hcl 500 Mg Tablet) 500 mg PO DAILY [facility] Last Admin: 10/16/23 10:22 Dose: 500 mg Home Medications ?Medication ?Instructions ?Recorded ?Confirmed ?Last Taken ?Type hydroxyzine HCl 25 mg tablet 25 mg PO Q8H PRN anxiety 10/16/23 10/16/23 Unknown History magnesium oxide 400 mg (241.3 mg 400 mg PO DAILY 10/16/23 10/16/23 10/15/23 History magnesium) tablet mecobalamin (vitamin B12) 5,000 5,000 mcg PO DAILY 10/16/23 10/16/23 10/15/23 History mcg disintegrating tablet medroxyprogesterone 150 mg/mL 150 mg IM [id number] 10/16/23 10/16/23 Unknown History intramuscular suspension sertraline 50 mg tablet 50 mg PO DAILY 10/16/23 10/16/23 10/15/23 History valacyclovir 500 mg tablet 500 mg PO DAILY 10/16/23 10/16/23 10/15/23 History Physical Exam Vital Signs: Vital Signs: Last Vital Signs Temp 98.8 F 10/16/23 15:44 Pulse 72 10/16/23 15:44 Resp 14 10/16/23 15:44 BP 125/83 10/16/23 15:44 Pulse Ox 100 10/16/23 15:44 O2 Del Method Room Air 10/16/23 15:44 BMI result Body Mass Index 23.9 Neuro: Other: The patient is currently postictal restless and agitated this makes moaning noises is gurgling with a lot of secretions. Eyes are wide open and staring blankly with roving eye movements. She turns from side to side in moving all 4 extremities actively. Does not verbalize or follow any commands. Results Labs 10/16/23 05:11 10/16/23 05:11 Labs: Short CBC 10/16/23 Range/Units 05:11 WBC 3.7 L (4.8-10.8) X10*3/uL Hgb 9.4 L D (12.0-16.0) g/dl Hct 27.4 L (37.0-47.0) % Plt Count 178 (160-400) X10*3/uL BMP 10/16/23 05:11 Sodium 139 Potassium 3.1 L Chloride 107 Carbon Dioxide 24 BUN 9 Creatinine 0.77 Calcium 7.8 L D Urine 10/15/23 Range/Units 19:21 Urine Color Dark Yellow Urine Appearance Cloudy Urine pH 6.0 (5.0-9.0) Ur Specific [place] 1.025 (1.005-1.025) Urine Protein 30 (1+) H (Neg-Trace) mg/dL Urine Glucose (UA) Negative (Negative) mg/dL Assessment and Plan (1) Seizure disorder: Status: Acute The patient was witnessed to have a generalized tonic-clonic seizure and is currently postictal. She's been having a lot of spells in the last few days and it's unclear if those were all seizures because of her heightened stress. She also has hypocalcemia and hypomagnesemia. She is altered really been started on Keppra and was given additional loading dose of Keppra and was given phenobarbital under the alcohol withdrawal protocol. Recommendations: CT scan of the brain when patient is more cooperative. EEG. Keppra 2 g IV twice a day. Additional dose of phenobarbital 300 mg can be given IV. Use Valium 5 mg IV when necessary if there is a seizure recurrence. Correction of hypocalcemia and hypomagnesemia. Procedures Date of Service Date of Service: 10/16/23
[2023-10-16] MEDS: levETIRAcetam in NaCl (iso-os) 1,000 MG/100 ML PIGGYBACK 400 MG IV (16:29)
--- NOTE | 2023-10-16 16:35 | P.EN_ITS ---
Event Note Date of Service: 10/16/23 Event Note: [employer] called for generalized seizure on this 32yo with seizure disorder admitted with alcohol withdrawal on phenobarbital taper. Arrived to find pt altered, staring, rigid. RN reported generalized shaking. I noted focal L foot convulsions. Pt was given 5 mg IV Valium. Pt's seizure lasted [id number] then appeared to be postictal with a R facial Umer's paralysis for 2min but then became rigid and had L facial twitching. Pt was given 1g IV Keppra. Mg sulfate 2g also ordered (level had been 1.4 this AM and she was given 2g previously). Pt now postictal. Vitals stable. Plan transfer to ICU for neurologic monitoring and antiepileptic IV drip. Time Spent With Patient Time: Total time managing care of this patient today ____ minutes.
--- NOTE | 2023-10-16 16:36 | PC.NURSE ---
IV Diazepam given at 1620. LAP CUTTER. Unable to scan med at this time.
[2023-10-16] MEDS: diazePAM 10 MG/2 ML CARTRIDGE 5 MG IVPUSH ×3 (16:38→20:57)
--- NOTE | 2023-10-16 16:53 | PC.NURSE ---
Rapid Response called at 16:18, 5mg of Diazepam IV at 16:20. RT at bedside support for airway. IV Keppra 1,000mg given IV given at 16:30. IV Mag infusing now. Plan to transfer to M/T, report given to RN. See VS from [employer].
[2023-10-16 17:00] LABS: Anion Gap 18 (12-20); Blood Urea Nitrogen 5 mg/dL (9-16); Calcium 8.4 mg/dL (8.4-10.2); Carbon Dioxide 19 mmol/L (22-29); Chloride 106 mmol/L (96-108); Creatinine Clr Calc Pharmacy 101.5; Estimated Glomerular Filt Rate > 60; Glucose Random 135 mg/dL (60-115); Magnesium 2.1 mg/dL (1.6-2.6); Potassium 3.7 mmol/L (3.3-5.1); Sodium 139 mmol/L (135-145)
[2023-10-16] MEDS: Acetaminophen 325 MG TABLET 650 MG PO (17:20)
[2023-10-16] MEDS: ondansetron HCL 4 MG/2 ML VIAL IVPUSH (21:00)
--- NOTE | 2023-10-16 21:05 | PM.EVENT ---
Event Note Date of Service: 10/16/23 Event Note: Rapid response was called as patient had a witnessed seizure episode. As per RN, patient with jerking movement of extremities and eyes rolling backwards. Was given 5 mg IV Valium but continued to have convulsive movements of upper extremities. Given additional 5 mg IV Valium and symptoms resolved. It lasted for about [address] Tracy and patient will be transferred to ICU for closer monitoring. Time Spent With Patient Time: Total time managing care of this patient today ____ minutes.
[2023-10-16] MEDS: dexmedeTOMIDidine HCL/NS 400 MCG/100 ML INFUS..BTL 17.83 MCG IVCONT (21:50)
[2023-10-16] MEDS: Midazolam HCl/PF 2 MG/2 ML VIAL 4 MG IVPUSH (21:55)
--- NOTE | 2023-10-16 22:19 | W.PM.CCCN ---
History of Present Illness Data of Consult Service Date: 10/16/23 Requesting physician: Meryl Elizabeth Primary Care Provider: Unknown Physician HPI Reason for consult: recurrent seizure activity Reason for consult & transfer: ?Recurrent seizure activity HPI: ?Patient is a 32-year-old female with prior history of seizure disorder who used to be on Keppra but was taken off given that her last EEG done a couple years ago was negative, so they took her off Keppra; she also has history of anxiety, depression, mood disorder, episodic alcohol binge drinking habits, consumption of edible THC related products who was admitted to the hospital on 10/15/2023 due to having 2 episodes of seizures with additional questionable seizure-like activity in the ER.? Is known the patient had been seen in the ER a couple times initially left AMA after getting Keppra and stating that she will follow up with her neurologist but came back the same day after having more episodes at home.? The patient was treated with Keppra, was placed on phenobarbital and while on the floor today she had 2 episodes of seizures with the 1st one lasting approximately 10 minutes followed by another episode of about 5 minutes and then decision was to bring her to the ICU; given the concern that she will continued to deteriorate. While being transported the patient had another episode of tonic-clonic seizure which was witnessed by me; patient was given 4 mg of Versed with good effect and clear postictal state.? Patient was placed on Precedex and will be monitored in the ICU. ROS:? Unable to obtain Past Medical History:? As above Past Surgical History: ? Cervical surgery Right wrist surgery Low back surgery Family history:? Noncontributory Social History:? Currently living with a family member as she had to move out of her apartment for nasal her house, she is unemployed, does binge drink occasionally last being 2 weeks ago, known to use edible THC products. CODE STATUS: FULL CODE Allergies: NKDA Home Medications: See Med Rec PHYSICAL EXAM: VS: ?113/80, 80, 16, 98% on room air. General:? Somnolent ? postictal Skin:? Intact, no lesions, edema, erythema, clubbing or cyanosis.? No ulcers. HEENT:? Head is normocephalic, atraumatic, pupils equal and round bilaterally 3 mm. ?Buccal mucosa dry.? Neck supple, no lymphadenopathy. ? Cardiac:? Clear S1-S2, no murmurs rubs or gallops. Pulmonary:? Clear to auscultation, no wheezes, rales or rhonchi. Abdomen:? Protuberant, positive bowel sounds in all 4 quadrants.? Soft, nontender, no rebound or guarding.? Musculoskeletal:? Tight joints on passive range of motion of the upper and lower extremities bilaterally without cogwheeling, no leg edema, no leg or calf asymmetry. Neurologic:? As above, postictal Vascular:? 2+ pulses upper and lower extremities distally. SIGNIFICANT LABORATORY DATA:? White blood cells 3.7, hemoglobin 9.4, hematocrit 27.4, platelets 170, MCV 101.? Sodium 139, potassium 3.7, chloride 106, carbon dioxide 19, anion gap 18, BUN 5, creatinine 0.81, random glucose 135, magnesium 2.1, vitamin B12 more than 2000, folate 12.3. Urine test negative. REVIEW OF IMAGES: ?Will order head CT EKG REVIEW:? To my view this sinus rhythm ventricular rate 90 beats per minute.? There is no ST elevations, no ST depressions.? No comparison available. ASSESSMENT : 1. Acute on chronic generalized tonic-clonic seizures with questionable cause of alcohol withdrawal versus stress-induced 2. Multiple stressors 3. Anxiety and depression 4. Chronic macrocytic anemia without B12 or folate deficiency 5. Binge etoh use ( I do not think she is withdrawing) and dont think this is causing the Seizures. PLAN OF CARE: Patient was transferred to ICU, as above-mentioned she received Versed on arrival due to recurrent episode of seizures, will place her on Precedex and monitor closely for airway compromise or recurrent seizure activity at which point we may decide to intubate her.? In the meantime will follow Neurology recommendations as she was seen earlier on by them and will increase Keppra to 2 g twice daily and if she is awake will continue with phenobarbital, thiamine and folic acid.? Will use volume or similar benzodiazepines as needed. Aspiration and seizure precautions. Will order head CT to rule out organic causes and will order an EEG. GI PROPHYLAXIS:? PPI DVT PROPHYLAXIS: On lovenox Clinical update [address] head results are negative. Her Keppra was increased and an extra dose was given last night. 0200 Patient had a seizure episode , as reported by RN, upon seen the patient she was making throat noises, I pressed on her eyeballs and responded with increase noise and retracted from pain still 4 mg of versed were going and the patient calmed down, a few minuted later become very alert and told the RN she feels like she is going to have another seizure. at 0215 am RN called me into the room having same tense muscle activity, this appeared asynchronus and her eyes were forcefully closed, I pressed hard on her calf and thigh and it relaxed, at this point I told the nurse loudly not to give her any more medications specifically no more benzodiazepines and I confronted the patient, asked her to stop doing what she is doing, calm down and relax and within 30 seconds or so the patient stopped doing what she was doing and completely relaxed, turn herself away from us and pretended to sleep. It is also worth noting that during these 2 episodes her heart rate never went up, she seems to be holding her breath during the episodes and her O2 sat was always 100% on room air. I subsequently went to speak to the patient, she pretended to be deeply asleep forcing her eyes to be close upon resistance, when confronted she was able to speak to me normally, I informed her kindly what I have noted during the exam and the fact that I will not be giving her any more benzodiazepines, she got a little defensive and upset; stating well if that is your decision that is your decision . I also kindly explained her that given her these medications increase the chance of many side effects including but no limited to respiratory depression leading to respiratory arrest/cardiac arrest and even despite of being in a controlled setting. In addition to the risk of dependence, hypotension, bradycardia, even seizures and dystonic involuntary movements among others. At this point I truly think the patient is having a somatoform disorder, would certainly consider a psych evaluation. EEG was still order for the morning, which I suspect will be normal and it would all come down to a diagnosis of exclusion. 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 0400 patient asked to speak to me and she was very upset about the fact that I am not giving her more medications and recalls me saying to the nurses that I do not believe these are true seizures and not to provide any more benzodiazepines; this was all said during her ?seizure episode which once again, this proves that she was not ictal or postictal as he recalls everything that happened during such episode. Patient got very confronted active, her nurse all the was in the room, I kindly told the patient I respect what she thinks and that I would rather step out to avoid confrontation. She was informed that her workup will continue including her EEG in the morning and that the final decision will be by the neurologist. Case discussed with Internal Medicine Md Dr Elizabeth Critical care time used for critical evaluation of this patient, diagnosis, treatment and coordination of care, review her records and documentation TOTAL CRITICAL CARE TIME 90 MIN . discussion and coordination with consultants, completely separate from any procedures performed. Patient's care was discussed in detail with Dr. Tracy who is aware of all the above as well as the plan of care for this patient. [facility] Past Medical History Medical History (Updated 10/23/23 @ 00:02 by Julisa Serrato) Mood disorder Social History Social History (System 10/17/23 @ 07:47 by Helen Nino) Patient Tobacco Use Status: Never used Tobacco Use of substances other than those prescribed or required for medical reasons: Yes Currently Displaying Signs/Symptoms of Drug Intoxication Withdrawal: No Do you feel safe in your current relationship?: No Current Relationship Advance Directives: No Advance Directives Information Provided: No Do you have a plan to hurt others: No Plan Recently lost weight without trying: Yes How much weight loss: 2-13 pounds Eating poorly because of decreased appetite: Yes Nutrition screen score: 4 Nutrition Risks: No Nutritional Risk Patient : No : No Poor oral hygiene: No Meds Allergies Allergy/AdvReac Type Severity Reaction Status Date / Time No Known Allergies Allergy Unverified 10/17/23 07:47 [No Known Allergies*] Active Medications: Current Medications Acetaminophen (Acetaminophen 325 Mg Tablet) 650 mg PO Q6H PRN PRN Reason: Pain, Mild (Pain Scale 1-3) Last Admin: 10/16/23 17:20 Dose: 650 mg Diazepam (Diazepam 10 Mg/2 Ml Cartridge) 5 mg IVPUSH Q4H PRN PRN Reason: breakthrough seizure Last Admin: 10/16/23 20:57 Dose: 5 mg Enoxaparin Sodium (Enoxaparin Sodium 40 Mg/0.4 Ml Syringe) 40 mg SUBCUT Q24H [facility] Last Admin: 10/16/23 00:44 Dose: 40 mg Hydroxyzine HCl (Hydroxyzine Hcl 25 Mg Tablet) 25 mg PO Q8H PRN PRN Reason: anxiety Thiamine HCl 100 mg/ Sodium (Chloride) 101 mls @ 202 mls/hr IV DAILY [facility] Last Infusion: 10/16/23 09:55 Dose: Infused Dexmedetomidine HCl (Precedex) 400 mcg in 100 mls @ 0 mls/hr IVCONT .Q0M [facility]; Protocol Last Titration: 10/16/23 22:07 Dose: 0.8 mcg/kg/hr, 14.26 mls/hr Levetiracetam (Levetiracetam 1,000 Mg Tablet) 1,000 mg PO BID [facility] Last Admin: 10/16/23 10:22 Dose: 1,000 mg Magnesium Oxide (Magnesium Oxide 400 Mg Tablet) 800 mg PO TID [facility] Last Admin: 10/16/23 14:10 Dose: 800 mg Melatonin (Melatonin 3 Mg Tablet) 6 mg PO BEDTIME PRN PRN Reason: Insomnia Last Admin: 10/16/23 00:48 Dose: 6 mg Ondansetron HCl (Ondansetron Hcl 4 Mg/2 Ml Vial) 4 mg IVPUSH Q8H PRN PRN Reason: Nausea and Vomiting Last Admin: 10/16/23 21:00 Dose: 4 mg Pharmacy Consult (Consult Rx Etoh Phenob Im/Po) 1 each MISCELLANE ONCE PRN; Protocol PRN Reason: Consult order Phenobarbital (Phenobarbital 30 Mg Tablet) 30 mg PO BID [facility]; Protocol Stop: 10/17/23 21:01 Last Admin: 10/16/23 08:32 Dose: 30 mg Phenobarbital (Phenobarbital 15 Mg Tablet) 15 mg PO BID [facility]; Protocol Stop: 10/19/23 21:01 Phenobarbital (Phenobarbital 15 Mg Tablet) 15 mg PO DAILY [facility]; Protocol Stop: 10/21/23 09:01 Sertraline HCl (Sertraline Hcl 50 Mg Tablet) 50 mg PO DAILY [facility] Last Admin: 10/16/23 10:22 Dose: 50 mg Sodium Chloride (0.9 % Sodium Chloride Flush 3 Ml Syringe) 3 ml IVFLUSH QSHIFT [facility] Last Admin: 10/16/23 10:57 Dose: 3 ml Valacyclovir HCl (Valacyclovir Hcl 500 Mg Tablet) 500 mg PO DAILY [facility] Last Admin: 10/16/23 10:22 Dose: 500 mg Home Medications ?Medication ?Instructions ?Recorded ?Confirmed ?Last Taken ?Type hydroxyzine HCl 25 mg tablet 25 mg PO Q8H PRN anxiety 10/16/23 10/16/23 Unknown History magnesium oxide 400 mg (241.3 mg 400 mg PO DAILY 10/16/23 10/16/23 10/15/23 History magnesium) tablet mecobalamin (vitamin B12) 5,000 5,000 mcg PO DAILY 10/16/23 10/16/23 10/15/23 History mcg disintegrating tablet medroxyprogesterone 150 mg/mL 150 mg IM [id number] 10/16/23 10/16/23 Unknown History intramuscular suspension sertraline 50 mg tablet 50 mg PO DAILY 10/16/23 10/16/23 10/15/23 History valacyclovir 500 mg tablet 500 mg PO DAILY 10/16/23 10/16/23 10/15/23 History Physical Exam Vital Signs: Vital Signs: Last Vital Signs Temp 98.1 F 10/16/23 21:59 Pulse 81 10/16/23 21:59 Resp 16 10/16/23 21:59 BP 113/80 10/16/23 21:59 Pulse Ox 100 10/16/23 21:59 O2 Del Method Oxymask 10/16/23 21:59 O2 Flow Rate 4 10/16/23 21:59 BMI result Body Mass Index 23.9 Results Labs 10/18/23 05:16 10/18/23 05:16 Labs: Short CBC 10/16/23 Range/Units 05:11 WBC 3.7 L (4.8-10.8) X10*3/uL Hgb 9.4 L D (12.0-16.0) g/dl Hct 27.4 L (37.0-47.0) % Plt Count 178 (160-400) X10*3/uL BMP 10/16/23 10/16/23 05:11 16:42 Sodium 139 139 Potassium 3.1 L 3.7 Chloride 107 106 Carbon Dioxide 24 19 L BUN 9 5 L Creatinine 0.77 0.81 Calcium 7.8 L D 8.4 D
[2023-10-16] MEDS: Lactated Ringers 1,000 ML 999 ML IV (22:59)
[2023-10-16] MEDS: levETIRAcetam 1,000 MG TABLET 2000 MG PO (23:02)
[2023-10-17] VITALS (10 sets, daily range): BP systolic 96–149; BP diastolic 64–96; PULSE 57–97; RESP 16–18; TEMP 36–36.6; O2SAT 97–100
--- NOTE | 2023-10-17 02:28 | PC.NURSE ---
0203 patient with another seizure activity, MEE Denise at the bedside ordered Versed 4mg given with +response, in 15 min patient also tensing and ellen like seizure, no change in cardiac rhythm HR 72 with SpO2 95-100% and stable BP, patient holding respirations, PA asked patient that she can relax and no need to cause self-harm, patient slowly relaxing muscles and back to baseline in few minutes, talking, alert orientedx4, neuro intact.
[2023-10-17] MEDS: Omeprazole 20 MG CAPSULE.DR PO (06:22)
[2023-10-17] MEDS: Acetaminophen 325 MG TABLET 650 MG PO (06:25)
[2023-10-17 08:03] LABS: Hematocrit 30.5 % (37.0-47.0); Hemoglobin 10.1 g/dl (12.0-16.0); Mean Corpuscular HGB Conc 33.1 g/dl (31.0-35.0); Mean Corpuscular Hemoglobin 35.1 pg (27.0-33.0); Mean Corpuscular Volume 105.9 fL (80.0-98.0); Platelet Count 183 X10*3/uL (160-400); Red Blood Count 2.88 X10*6/uL (4.20-5.50); Red Cell Distribution Width 14.6 % (11.0-16.0); White Blood Count 3.4 X10*3/uL (4.8-10.8)
[2023-10-17 08:19] LABS: Anion Gap 11 (12-20); Blood Urea Nitrogen 3 mg/dL (9-16); Calcium 8.7 mg/dL (8.4-10.2); Carbon Dioxide 25 mmol/L (22-29); Chloride 104 mmol/L (96-108); Creatinine Clr Calc Pharmacy 119.1; Estimated Glomerular Filt Rate > 60; Glucose Fasting 96 mg/dL (60-99); Magnesium 2.2 mg/dL (1.6-2.6); Potassium 4.4 mmol/L (3.3-5.1); Sodium 136 mmol/L (135-145)
[2023-10-17 08:43] LABS: Glucose, Whole Blood 79 mg/dL (60-115)
[2023-10-17] MEDS: Thiamine HCL 100 MG in 0.9 % Sodium Chloride 100 ML 202 MG IV (09:01)
[2023-10-17] MEDS: ondansetron HCL 4 MG/2 ML VIAL IVPUSH (09:01)
[2023-10-17] MEDS: LORazepam 2 MG/ML VIAL IVPUSH ×2 (09:08→23:17)
[2023-10-17] MEDS: Magnesium Oxide 400 MG TABLET 800 MG PO ×3 (09:09→19:47)
[2023-10-17] MEDS: levETIRAcetam 1,000 MG TABLET 2000 MG PO ×2 (09:09→19:48)
[2023-10-17] MEDS: PHENobarbitaL 30 MG TABLET PO ×2 (09:09→19:47)
[2023-10-17] MEDS: valACYclovir HCL 500 MG TABLET PO (09:09)
[2023-10-17] MEDS: Sertraline HCL 50 MG TABLET PO (09:09)
--- NOTE | 2023-10-17 09:11 | P.PNIM_ITS ---
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 Physical Exam 2 Vital Signs: Vital Signs: Last Vital Signs Temp 97.2 F 10/17/23 07:17 Pulse 58 10/17/23 07:17 Resp 16 10/17/23 07:17 BP 135/86 10/17/23 07:17 Pulse Ox 100 10/17/23 07:17 O2 Del Method Room Air 10/17/23 07:17 O2 Flow Rate 4 10/17/23 02:00 BMI result Body Mass Index 23.9 General: AO X 3, no acute distress Resp: CTA bilateral, no accessory muscles used CVS: S1,S2,RRR GI: soft, non tender, non distended Neuro: motor grossly intact, alert Psych: appropriate affect, appropriate insight Objective Data Active Medications Acetaminophen (Acetaminophen 325 Mg Tablet) 650 mg PO Q6H PRN PRN Reason: Pain, Mild (Pain Scale 1-3) Last Admin: 10/17/23 06:25 Dose: 650 mg Documented By: OZZY Enoxaparin Sodium (Enoxaparin Sodium 40 Mg/0.4 Ml Syringe) 40 mg SUBCUT Q24H [facility] Last Admin: 10/16/23 22:17 Dose: 40 mg Documented By: PATTI Thiamine HCl 100 mg/ Sodium (Chloride) 101 mls @ 202 mls/hr IV DAILY [facility] Last Admin: 10/17/23 09:01 Dose: 202 mls/hr Documented By: CHASE Levetiracetam (Levetiracetam 1,000 Mg Tablet) 2,000 mg PO BID [facility] Last Admin: 10/16/23 23:02 Dose: 1,000 mg Documented By: PATTI Comments: 1000 md given one hour ago, for now only 1000 mg per MEE Denise to make it 2000 mg total Lorazepam (Lorazepam 2 Mg/Ml Vial) 2 mg IVPUSH ONCE ONE Stop: 10/17/23 09:16 Last Admin: 10/17/23 09:08 Dose: 2 mg Documented By: CHASE Magnesium Oxide (Magnesium Oxide 400 Mg Tablet) 800 mg PO TID [facility] Last Admin: 10/16/23 22:17 Dose: 800 mg Documented By: PATTI Melatonin (Melatonin 3 Mg Tablet) 6 mg PO BEDTIME PRN PRN Reason: Insomnia Last Admin: 10/16/23 00:48 Dose: 6 mg Documented By: LAURIE Omeprazole (Omeprazole 20 Mg Capsule.) 20 mg PO DAILY@0630 [facility] Last Admin: 10/17/23 06:22 Dose: 20 mg Documented By: OZZY Ondansetron HCl (Ondansetron Hcl 4 Mg/2 Ml Vial) 4 mg IVPUSH Q8H PRN PRN Reason: Nausea and Vomiting Last Admin: 10/17/23 09:01 Dose: 4 mg Documented By: CHASE Pharmacy Consult (Consult Rx Etoh Phenob Im/Po) 1 each MISCELLANE ONCE PRN; Protocol PRN Reason: Consult order Phenobarbital (Phenobarbital 30 Mg Tablet) 30 mg PO BID [facility]; Protocol Stop: 10/17/23 21:01 Last Admin: 10/16/23 22:18 Dose: 30 mg Documented By: PATTI Phenobarbital (Phenobarbital 15 Mg Tablet) 15 mg PO BID [facility]; Protocol Stop: 10/19/23 21:01 Phenobarbital (Phenobarbital 15 Mg Tablet) 15 mg PO DAILY [facility]; Protocol Stop: 10/21/23 09:01 Sertraline HCl (Sertraline Hcl 50 Mg Tablet) 50 mg PO DAILY [facility] Last Admin: 10/16/23 10:22 Dose: 50 mg Documented By: GILBERT Sodium Chloride (0.9 % Sodium Chloride Flush 3 Ml Syringe) 3 ml IVFLUSH QSHIFT [facility] Last Admin: 10/17/23 09:01 Dose: Not Given Documented By: CHASE Non-Admin Reason: IV Running Valacyclovir HCl (Valacyclovir Hcl 500 Mg Tablet) 500 mg PO DAILY [facility] Last Admin: 10/16/23 10:22 Dose: 500 mg Documented By: GILBERT Labs 10/17/23 07:35 10/17/23 07:35 Labs: Laboratory Results - last 24 hr 10/16/23 10/16/23 10/17/23 10:15 16:42 07:35 MCV 105.9 H MCH 35.1 H MCHC 33.1 RDW 14.6 Plt Count 183 MPV 10.0 Absolute Nucleated RBC 0.000 Nucleated RBC % (auto) 0.0 Hold Purple Top SEE NOTE Anion Gap 18 11 L Estim Creat Clear Calc 101.5 119.1 Estimated GFR > 60 > 60 POC Glucose Random Glucose 135 H Fasting Glucose 96 Calcium 8.4 D 8.7 Magnesium 2.1 2.2 Vitamin B12 > 2000 H Folate 12.3 10/17/23 08:38 MCV MCH MCHC RDW Plt Count MPV Absolute Nucleated RBC Nucleated RBC % (auto) Hold Purple Top Anion Gap Estim Creat Clear Calc Estimated GFR POC Glucose 79 Random Glucose Fasting Glucose Calcium Magnesium Vitamin B12 Folate Assessment and Plan (1) Seizure-like activity: Plan 32F PMH alcohol dependence, questionable seizure disorder, mood disorder presented with seizure-like activity Seizure-like activity Question epileptic versus nonepileptic seizure vs both, continue Keppra 2gm bid, phenobarb, ct head negative follow up neuro Alcohol dependence with possible withdrawal Continue phenobarbital Monitor CIWA Acute hypomagnesemia and hypokalemia resolved Mood disorder Sertraline DVT prophylaxis with Lovenox Full Code Reason for continued hospitalization: seizure activity Quality Stroke Does the patient have a stroke diagnosis?: No VTE Prior VTE?: No VTE Risk Level:: Medical - moderate - high VTE Device Contraindication: Treatment Not Indicated VTE Drug Contraindication: N/A - Med Ordered
--- NOTE | 2023-10-17 09:23 | PC.NURSE ---
0825 VMT calling to check on Pt, Upon entering room Pt noted to be having seizure like activity, ICE CREAM MAN called, Pt given 2mg of IV ativan and 5mg of valium, seizure activity broke 0840. 0925 Pt out of postictal phase has no memory of what happened. Pt cleaned up and is now resting with call angel in reach, respirations even and unlabored.
[2023-10-17 09:45] LABS: Lactic Acid 2.4 mmol/L (0.5-2.0)
[2023-10-17] MEDS: diazePAM 10 MG/2 ML CARTRIDGE 5 MG IVPUSH (09:46)
[2023-10-17 11:19] LABS: Reflex Lactate? Lactic Acid Added
[2023-10-17 12:02] LABS: ~Lactic Acid-LAB USE ONLY 1.1 mmol/L (0.5-2.0)
[2023-10-17] MEDS: 0.9 % Sodium Chloride Flush 3 ML SYRINGE IVFLUSH ×2 (14:22→19:48)
--- NOTE | 2023-10-17 15:48 | PC.NURSE ---
Pt resting in bed, VSS, respirations even and unlabored, CIWA score of 1, Pt c/o slight anxiety, no pain reported at this time, taking PO meds without difficulty, call angel within reach.
--- NOTE | 2023-10-17 16:42 | PC.NURSE ---
Pt complaining of R AC IV site pain upon flushing, IV removed with remaining access to R forearm, second access placed by dry pan charger to R arm.
[2023-10-17 23:21] LABS: Glucose, Whole Blood 139 mg/dL (60-115)
[2023-10-18] MEDS: Enoxaparin Sodium 40 MG/0.4 ML SYRINGE SUBCUT
[2023-10-18] MEDS: Melatonin 3 MG TABLET 6 MG PO (00:13)
[2023-10-18 00:36] LABS: Hematocrit 30.6 % (37.0-47.0); Hemoglobin 10.3 g/dl (12.0-16.0); Mean Corpuscular HGB Conc 33.7 g/dl (31.0-35.0); Mean Corpuscular Hemoglobin 34.9 pg (27.0-33.0); Mean Corpuscular Volume 103.7 fL (80.0-98.0); Mean Platelet Volume 9.5 fL (9.4-12.3); Platelet Count 195 X10*3/uL (160-400); Red Blood Count 2.95 X10*6/uL (4.20-5.50); Red Cell Distribution Width 14.5 % (11.0-16.0); White Blood Count 3.2 X10*3/uL (4.8-10.8)
[2023-10-18 00:55] LABS: Alanine Aminotransferase 26 U/L (0-31); Albumin Level 4.2 g/dL (3.5-5.0); Alkaline Phosphatase 65 U/L (39-117); Anion Gap 12 (12-20); Aspartate Amino Transferase 39 U/L (5-31); Bilirubin Total 0.5 mg/dL (0.0-1.0); Blood Urea Nitrogen < 3 mg/dL (9-16); Carbon Dioxide 26 mmol/L (22-29); Chloride 104 mmol/L (96-108); Creatinine Clr Calc Pharmacy 101.5; Estimated Glomerular Filt Rate > 60; Glucose Random 96 mg/dL (60-115); Potassium 3.9 mmol/L (3.3-5.1); Sodium 138 mmol/L (135-145)
[2023-10-18 01:13] VITALS: RESP 18
--- NOTE | 2023-10-18 02:32 | PM.EVENT ---
Event Note Date of Service: 10/18/23 Event Note: 11:10 PM - Rapid response was activated as the pt was found to have tonic seizure like activity and HR increased to 150s. On evaluation, patient was laying on her left side assisted by nursing. Foamy saliva was noted. No incontinence of urine or stools noted. Her pupils were noted to be symmetrical. She received 2 mg IV of Ativan. A few minutes later, patient mental status came back to baseline and HR improved significantly. It is unclear to me to determine if she had post-ictal confusion as she returned to baseline quite quickly. Phenobarbital levels obtained and within normal limits. Calcium level is normal. Magnesium level is still pending as well as prolactin level. We will keep her on aspiration, fall and seizures precautions. Time Spent With Patient Time: Total time managing care of this patient today ____ minutes.
--- NOTE | 2023-10-18 02:40 | PC.NURSE ---
T room alerted over walkie that the patient appeared to be having a seizure at approximately 23:08. RN and ancillary staff responded to bedside. Facilities Maintenance Manager observed patient to be laying on her right side, tensing/ muscles rigid and contracted with pt making groaning noises, clenching her teeth. Eyes open during this with pupils assessed 3 mm brisk +perrla. Yankauer in place at bedside, suctioning provided produced scant frothy white saliva present on po suctioning. HR observed sinus tach 160's on tele during this time. Assessment concerning seizure and rapid response was called; team including nursing supervisor testing and covering Dr. Gopi Lucero presented to bedside. POC obtained was 139. Vitals obtained as follows: 124/91, HR 101, RR 20, 100% Spo2 on RA. Pt not incontinent. A&Ox4, talking in clear sentences including being able to describe her and her daughter's current living situation after given 1x stat IVP ativan per MD. Labs ordered and obtained. Seizure and aspiration precautions in place prior to event and continue. Bed alarm on, continues with in-room camera. Hourly purposeful rounding.
[2023-10-18 03:34] VITALS: BP 108/64; PULSE 77; RESP 18; TEMP 36.3; O2SAT 97
[2023-10-18] MEDS: Omeprazole 20 MG CAPSULE.DR PO (06:00)
[2023-10-18 06:25] LABS: Anion Gap 12 (12-20); Blood Urea Nitrogen < 3 mg/dL (9-16); Calcium 8.9 mg/dL (8.4-10.2); Carbon Dioxide 25 mmol/L (22-29); Chloride 105 mmol/L (96-108); Creatinine Clr Calc Pharmacy 108.1; Estimated Glomerular Filt Rate > 60; Glucose Fasting 81 mg/dL (60-99); Potassium 3.8 mmol/L (3.3-5.1); Sodium 138 mmol/L (135-145)
[2023-10-18 06:28] LABS: Mean Corpuscular HGB Conc 33.3 g/dl (31.0-35.0); Mean Corpuscular Hemoglobin 34.4 pg (27.0-33.0); Mean Corpuscular Volume 103.1 fL (80.0-98.0); Mean Platelet Volume 9.9 fL (9.4-12.3); Platelet Count 203 X10*3/uL (160-400); Red Blood Count 2.91 X10*6/uL (4.20-5.50); Red Cell Distribution Width 14.4 % (11.0-16.0); White Blood Count 3.9 X10*3/uL (4.8-10.8)
[2023-10-18 07:03] VITALS: BP 112/67; PULSE 60; RESP 12; TEMP 36.3; O2SAT 94
[2023-10-18] MEDS: Thiamine HCL 100 MG in 0.9 % Sodium Chloride 100 ML 202 MG IV (08:52)
[2023-10-18] MEDS: valACYclovir HCL 500 MG TABLET PO (08:54)
[2023-10-18] MEDS: Magnesium Oxide 400 MG TABLET 800 MG PO ×2 (08:54→15:02)
[2023-10-18] MEDS: Sertraline HCL 50 MG TABLET PO (08:54)
[2023-10-18] MEDS: PHENobarbitaL 15 MG TABLET PO (08:54)
[2023-10-18] MEDS: levETIRAcetam 1,000 MG TABLET 2000 MG PO (08:54)
[2023-10-18] MEDS: 0.9 % Sodium Chloride Flush 3 ML SYRINGE IVFLUSH ×2 (08:55→15:02)
[2023-10-18 09:14] LABS: Prolactin 11.2 ng/mL
--- NOTE | 2023-10-18 09:35 | PC.NURSE ---
Patient reported noticing small amt of blood in urine 2 days ago,urine clear today,Dr. Holley notified,urine sample sent
--- NOTE | 2023-10-18 09:42 | P.PNIM_ITS ---
Subjective Subjective Date of Service: 10/18/23 Interval History: had another convulsive event at around midnight, no postictal period also complaining of some spotting Physical Exam 2 Vital Signs: Vital Signs: Last Vital Signs Temp 97.3 F 10/18/23 07:03 Pulse 60 10/18/23 07:03 Resp 12 10/18/23 07:03 BP 112/67 10/18/23 07:03 Pulse Ox 94 10/18/23 07:03 O2 Del Method Room Air 10/18/23 07:03 O2 Flow Rate 4 10/17/23 02:00 BMI result Body Mass Index 23.9 General: AO X 3, no acute distress Resp: CTA bilateral, no accessory muscles used CVS: S1,S2,RRR GI: soft, non tender, non distended Neuro: motor grossly intact, alert Psych: appropriate affect, appropriate insight Objective Data Active Medications Acetaminophen (Acetaminophen 325 Mg Tablet) 650 mg PO Q6H PRN PRN Reason: Pain, Mild (Pain Scale 1-3) Last Admin: 10/17/23 06:25 Dose: 650 mg Documented By: OZZY Diazepam (Diazepam 10 Mg/2 Ml Cartridge) 5 mg IVPUSH ONCE PRN PRN Reason: seizures Enoxaparin Sodium (Enoxaparin Sodium 40 Mg/0.4 Ml Syringe) 40 mg SUBCUT Q24H [facility] Last Admin: 10/18/23 00:00 Dose: 40 mg Documented By: ANA Thiamine HCl 100 mg/ Sodium (Chloride) 101 mls @ 202 mls/hr IV DAILY [facility] Last Infusion: 10/18/23 09:36 Dose: Infused Documented By: DELMY Levetiracetam (Levetiracetam 1,000 Mg Tablet) 2,000 mg PO BID [facility] Last Admin: 10/18/23 08:54 Dose: 2,000 mg Documented By: DELMY Magnesium Oxide (Magnesium Oxide 400 Mg Tablet) 800 mg PO TID [facility] Last Admin: 10/18/23 08:54 Dose: 800 mg Documented By: DELMY Melatonin (Melatonin 3 Mg Tablet) 6 mg PO BEDTIME PRN PRN Reason: Insomnia Last Admin: 10/18/23 00:13 Dose: 6 mg Documented By: ANA Omeprazole (Omeprazole 20 Mg Capsule.) 20 mg PO DAILY@0630 [facility] Last Admin: 10/18/23 06:00 Dose: 20 mg Documented By: ANA Ondansetron HCl (Ondansetron Hcl 4 Mg/2 Ml Vial) 4 mg IVPUSH Q8H PRN PRN Reason: Nausea and Vomiting Last Admin: 10/17/23 09:01 Dose: 4 mg Documented By: CHASE Pharmacy Consult (Consult Rx Etoh Phenob Im/Po) 1 each MISCELLANE ONCE PRN; Protocol PRN Reason: Consult order Phenobarbital (Phenobarbital 15 Mg Tablet) 15 mg PO BID [facility]; Protocol Stop: 10/19/23 21:01 Last Admin: 10/18/23 08:54 Dose: 15 mg Documented By: DELMY Phenobarbital (Phenobarbital 15 Mg Tablet) 15 mg PO DAILY [facility]; Protocol Stop: 10/21/23 09:01 Sertraline HCl (Sertraline Hcl 50 Mg Tablet) 50 mg PO DAILY [facility] Last Admin: 10/18/23 08:54 Dose: 50 mg Documented By: DELMY Sodium Chloride (0.9 % Sodium Chloride Flush 3 Ml Syringe) 3 ml IVFLUSH QSHIFT [facility] Last Admin: 10/18/23 08:55 Dose: 3 ml Documented By: DELMY Valacyclovir HCl (Valacyclovir Hcl 500 Mg Tablet) 500 mg PO DAILY [facility] Last Admin: 10/18/23 08:54 Dose: 500 mg Documented By: DELMY Labs 10/18/23 05:16 10/18/23 05:16 Labs: Laboratory Results - last 24 hr 10/17/23 10/17/23 10/17/23 09:11 11:45 23:17 MCV MCH MCHC RDW Plt Count MPV Absolute Nucleated RBC Nucleated RBC % (auto) Anion Gap Estim Creat Clear Calc Estimated GFR POC Glucose 139 H Random Glucose Fasting Glucose Lactic Acid 2.4 H* Lactic Acid F/U @ 2Hr 1.1 Calcium Magnesium Total Bilirubin AST ALT Alkaline Phosphatase Total Creatine Kinase 515 H Total Protein Albumin Prolactin 11.2 Phenobarbital 10/18/23 10/18/23 00:28 05:16 MCV 103.7 H 103.1 H MCH 34.9 H 34.4 H MCHC 33.7 33.3 RDW 14.5 14.4 Plt Count 195 203 MPV 9.5 9.9 Absolute Nucleated RBC 0.000 0.000 Nucleated RBC % (auto) 0.0 0.0 Anion Gap 12 12 Estim Creat Clear Calc 101.5 108.1 Estimated GFR > 60 > 60 POC Glucose Random Glucose 96 Fasting Glucose 81 Lactic Acid Lactic Acid F/U @ 2Hr Calcium 9.0 8.9 Magnesium 2.0 Total Bilirubin 0.5 AST 39 H ALT 26 Alkaline Phosphatase 65 Total Creatine Kinase 482 H Total Protein 7.0 Albumin 4.2 Prolactin Phenobarbital 12.6 Assessment and Plan (1) Seizure-like activity: Plan 32F PMH alcohol dependence, questionable seizure disorder, mood disorder presented with seizure-like activity Seizure-like activity Question epileptic versus nonepileptic seizure vs both, continue Keppra 2gm bid, phenobarb, ct head negative 2hr eeg with no seizure activity d/w neuro recommended transfering for video EEG Alcohol dependence with possible withdrawal Continue phenobarbital Monitor CIWA Acute hypomagnesemia and hypokalemia resolved Mood disorder Sertraline DVT prophylaxis with Lovenox Full Code Reason for continued hospitalization: arranging for veeg transfer, cannot rule out epileptic seizures Quality Stroke Does the patient have a stroke diagnosis?: No VTE Prior VTE?: No VTE Risk Level:: Medical - moderate - high VTE Device Contraindication: Treatment Not Indicated VTE Drug Contraindication: N/A - Med Ordered
[2023-10-18 09:50] LABS: Appearance Urine Clear; Color Urine Yellow; Glucose Urine UA Negative (Negative); Leukocyte Esterase Urine Negative (Negative); Nitrite Urine Negative (Negative); PH 7.5 (5.0-9.0); Urine Blood Negative (Negative); Urine Ketones Negative (Negative); Urine Protein Negative (Neg-Trace)
--- NOTE | 2023-10-18 10:41 | PC.NURSE ---
patient reported wt loss 7 lbs and poor appetite,Dr. Holley notified,nutrition consult ordered
--- NOTE | 2023-10-18 10:45 | P.DS_ITS ---
DS: Providers Provider Date of Service: 10/18/23 Date of admission: 10/17/23 06:58 Primary care physician: Joyce Pillai MD Consults: 10/15/23 22:52 Consult to Care Team Stat Comment: Reason for consultation: Significant depression, hx bipolar not on medication, no SI 10/15/23 23:36 Consult to Neurology Routine Consulting Provider: [facility] Reason for consultation: seizure vs pseudoseizure 10/16/23 22:33 Consult to Critical Care Routine Consulting Provider: Josh Tracy Reason for consultation: seizure DS: Diagnosis Discharge Diagnosis (1) Seizure-like activity: Status: Acute DS: Summary Hospital Course Hospital Course: from initial hpi: 32-year-old female with pertinent history of ?seziure disorder, mood disorder who presents to the emergency department for evaluation of seizure-like activity. Patient states she was on antiepileptics until about 3-4 years ago when she was taken off of Keppra by her neurologist. Patient initially presented to the ER 1 week ago for seizure-like activity. Magnesium was found to be low and she was sent home. Patient presented again on the day of presentation with 2 episodes of seizure. Had additional questionable episode of seizure-like activity while in the ER. No postictal state as per ER provider. She was loaded with Keppra but decided to leave against medical advice. Patient was initiated on Keppra b.i.d. and asked to follow up with Neurology. Patient returned later in the day with an additional episode of seizure that happened at home. Patient states she has had excessive stressors recently and relapsed with alcohol. Apparently her last drink was about 14 days prior to presentation. Is having nausea, tremors. No hallucinations. No fever, chills, chest discomfort, palpitations, shortness of breath, abdominal pain, changes in urinary or bowel habits. In the emergency department, patient was initiated on phenobarb protocol hospital course: Patient was admitted for seizure-like activity. On 2nd day of hospitalization patient had a rapid response for recurrent seizure-like activity, during this episode patient was hypoxic and foaming at the mouth was seen by Neurology in a postictal state and started on high-dose Keppra and transferred to the ICU for Precedex, patient then had further episodes that seemed more nonepileptic in nature and was downgraded to medical floor on medical floor had further episodes, 2 hour EEG was done that did not show epileptic activity, however, after discussion with Neurology can not rule out underlying mixed picture of both epileptic and nonepileptic seizures and recommended transfer to tertiary center with video EEG capabilities. Patient will be transferred to [facility]. For alcohol dependence with withdrawal was treated with phenobarbital protocol. For acute severe hypomagnesemia and hypokalemia was given replacement and this resolved. For mood disorder was continued on sertraline. Time Attestation Discharge Coordination Time (in mins): 32 Quality: Safe Use of Opioids Does Pt have an Active Cancer Diagnosis on the Problem List?: No Quality: Stroke Does the patient have a stroke diagnosis?: No Physical Exam Vital Signs: Vital Signs: Last Vital Signs Temp 97.3 F 10/18/23 07:03 Pulse 60 10/18/23 07:03 Resp 12 10/18/23 07:03 BP 112/67 10/18/23 07:03 Pulse Ox 94 10/18/23 07:03 O2 Del Method Room Air 10/18/23 07:03 O2 Flow Rate 4 10/17/23 02:00 BMI result Body Mass Index 23.9 General: AO X 3, no acute distress Resp: CTA bilateral, no accessory muscles used CVS: S1,S2,RRR GI: soft, non tender, non distended Neuro: motor grossly intact, alert Psych: appropriate affect, appropriate insight DS: Data Data Completed and Pending Labs on day of discharge: Laboratory Results - last 24 hr 10/17/23 10/17/23 10/17/23 09:11 11:45 23:17 WBC RBC Hgb Hct MCV MCH MCHC RDW Plt Count MPV Absolute Nucleated RBC Nucleated RBC % (auto) Sodium Potassium Chloride Carbon Dioxide Anion Gap BUN Creatinine Estim Creat Clear Calc Estimated GFR POC Glucose 139 H Random Glucose Fasting Glucose Lactic Acid F/U @ 2Hr 1.1 Calcium Magnesium Total Bilirubin AST ALT Alkaline Phosphatase Total Creatine Kinase Total Protein Albumin Prolactin 11.2 Urine Color Urine Appearance Urine pH Ur Specific Story Urine Protein Urine Glucose (UA) Urine Ketones Urine Blood Urine Nitrite Ur Leukocyte Esterase Phenobarbital 10/18/23 10/18/23 10/18/23 00:28 05:16 09:23 WBC 3.2 L 3.9 L RBC 2.95 L 2.91 L Hgb 10.3 L 10.0 L Hct 30.6 L 30.0 L MCV 103.7 H 103.1 H MCH 34.9 H 34.4 H MCHC 33.7 33.3 RDW 14.5 14.4 Plt Count 195 203 MPV 9.5 9.9 Absolute Nucleated RBC 0.000 0.000 Nucleated RBC % (auto) 0.0 0.0 Sodium 138 138 Potassium 3.9 3.8 Chloride 104 105 Carbon Dioxide 26 25 Anion Gap 12 12 BUN < 3 L < 3 L Creatinine 0.81 0.76 Estim Creat Clear Calc 101.5 108.1 Estimated GFR > 60 > 60 POC Glucose Random Glucose 96 Fasting Glucose 81 Lactic Acid F/U @ 2Hr Calcium 9.0 8.9 Magnesium 2.0 Total Bilirubin 0.5 AST 39 H ALT 26 Alkaline Phosphatase 65 Total Creatine Kinase 482 H Total Protein 7.0 Albumin 4.2 Prolactin Urine Color Yellow Urine Appearance Clear Urine pH 7.5 Ur Specific Story 1.010 Urine Protein Negative Urine Glucose (UA) Negative Urine Ketones Negative Urine Blood Negative Urine Nitrite Negative Ur Leukocyte Esterase Negative Phenobarbital 12.6 Discharge Plan Discharge Anticipated Discharge Date/Time: 10/18/23 10:44 Patient Disposition: Xfer Acute Care Hospital Discharge Diagnosis: seizure activity Referrals: Morteza Billy MD [Physician] - Joyce Pillai MD [Primary Care Provider] - Discharge Medications: Continued valacyclovir 500 mg tablet 500 mg PO DAILY magnesium oxide 400 mg (241.3 mg magnesium) tablet 400 mg PO DAILY hydroxyzine HCl 25 mg tablet 25 mg PO Q8H PRN (Reason: anxiety) sertraline 50 mg tablet 50 mg PO DAILY medroxyprogesterone 150 mg/mL suspension 150 mg IM [id number] mecobalamin (vitamin B12) 5,000 mcg tablet,disintegrating 5,000 mcg PO DAILY levetiracetam 1,000 mg tablet 1,000 mg PO BID Qty: 60 0RF Diet: Advance to usual diet Activity on Discharge: As tolerated Stand Alone Forms: Patient Portal Discharge page, Against Medical Advice Print Language: Stateless Care Plan Goals: manage seziure Health Concerns: seizure Plan of Treatment: transfer to [facility] [place] for video eeg Assessment: see above Patient Instructions: Nonepileptic Seizures (ED), Alcohol Withdrawal (ED)
--- NOTE | 2023-10-18 10:57 | MHC.CM.PN ---
Patient to transfer to [facility].
--- NOTE | 2023-10-18 11:07 | PC.NURSE ---
Patient notified of being accepted for transfer to [facility] enter
--- NOTE | 2023-10-18 11:20 | PC.NURSE ---
Ok for patient to come off telemetry for transfer per Mikie Holley
[2023-10-18 15:02] VITALS: BP 133/82; PULSE 68; RESP 16; TEMP 36.1; O2SAT 100
[2023-10-19 23:58] LABS: Prolactin 12.7 ng/mL
== END 2023-10-18 18:14 | disposition short-term general hospital (02) | DRG 101 ==
LOC: HO.ED 22:54 → HO.EDOVER 23:41 → HO.S3 10-16 07:51 → HO.IMC 10-16 16:58 → HO.ICU 10-16 21:39 → HO.S3 10-17 05:02
PROVIDERS: Internal Medicine; Physician Assistant; Admitting Provider Student in an Organized Health Care Education/Training Program; Emergency Provider Student in an Organized Health Care Education/Training Program; PCP Student in an Organized Health Care Education/Training Program; Visit Provider Internal Medicine
DX: G40.509 Epileptic seizures related to external causes, not intractable, without status epilepticus (principal); F10.239 Alcohol dependence with withdrawal, unspecified; R56.9 Unspecified convulsions; F39 Unspecified mood [affective] disorder; E83.51 Hypocalcemia; F44.5 Conversion disorder with seizures or convulsions; E83.42 Hypomagnesemia; E87.6 Hypokalemia; D53.9 Nutritional anemia, unspecified; Z79.899 Other long term (current) drug therapy
CPT/HCPCS: 36415; 70450; 80048; 80053; 80076; 80184; 80307; 81001; 81003; 81025; 82550; 82607; 82746; 82803; 82947; 83605; 83735; 84146; 85025; 85027; 92950; 93005; 94799; 95816; 99221; 99285; J1650; J1953; J2060; J2250; J2405; J2560; J3360; J3411; J3475; J7120

== ENCOUNTER → 2023-10-15 23:36 | Outpatient (BNV) | payer MEDICARE, MEDICAID, SELFPAY | PROVIDERS: Admitting Provider Student in an Organized Health Care Education/Training Program; Emergency Provider Student in an Organized Health Care Education/Training Program; Visit Provider Psychiatry & Neurology Neurology | DX: G40.909 Epilepsy, unspecified, not intractable, without status epilepticus (principal) | CPT/HCPCS: 99222 ==

== ENCOUNTER → 2023-10-15 23:36 | Outpatient (BNV) | payer MEDICARE, MEDICAID, SELFPAY | PROVIDERS: Admitting Provider Student in an Organized Health Care Education/Training Program; Emergency Provider Student in an Organized Health Care Education/Training Program; Visit Provider Student in an Organized Health Care Education/Training Program | DX: R56.9 Unspecified convulsions (principal) | CPT/HCPCS: 99223; 99233; 99239; 99499 ==

== ENCOUNTER 2023-11-26 14:17 | Emergency (ER) | payer MEDICARE, MEDICAID, SELFPAY ==
--- NOTE | 2023-11-26 14:24 | ED.GENADULT ---
HPI - General Adult General Chief complaint: Seizure Stated complaint: SEIZURE Time Seen by Provider: 11/26/23 14:24 Source: patient and EMS Mode of arrival: EMS Limitations: no limitations History of Present Illness ED Provider: Carol Clark PA-C HPI narrative: Patient is a 33 year old assigned female at with a history of seizures - on keppra, presenting to the emergency department today after a seizure. Patient states that she missed her medication this morning. Patient denies any dizziness, lightheadedness, abdominal pain, nausea, vomiting, fever, chills, blurry vision, double vision, loss of vision, chest pain, difficulty breathing, shortness of breath, back pain, night sweats, pain with urination, increased urinary frequency, increased urinary urgency, blood in her urine or stool, syncope or a near syncopal episode, recent trauma or falls, bowel incontinence, bladder incontinence, or any other complaints at this time. Relieving factors: none Exacerbating factors: none Associated symptoms: seizure Treatments prior to arrival: other (versed given by EMS) Related Data Home Medications ?Medication ?Instructions ?Recorded ?Confirmed hydroxyzine HCl 25 mg tablet 25 mg PO Q8H PRN anxiety 10/16/23 10/16/23 magnesium oxide 400 mg (241.3 mg 400 mg PO DAILY 10/16/23 10/16/23 magnesium) tablet mecobalamin (vitamin B12) 5,000 5,000 mcg PO DAILY 10/16/23 10/16/23 mcg disintegrating tablet medroxyprogesterone 150 mg/mL 150 mg IM [id number] 10/16/23 10/16/23 intramuscular suspension sertraline 50 mg tablet 50 mg PO DAILY 10/16/23 10/16/23 valacyclovir 500 mg tablet 500 mg PO DAILY 10/16/23 10/16/23 Previous Rx's ?Medication ?Instructions ?Recorded levetiracetam 1,000 mg tablet 1,000 mg PO BID #60 tabs 10/15/23 Allergies Allergy/AdvReac Type Severity Reaction Status Date / Time No Known Allergies Allergy Verified 12/08/23 14:33 [No Known Allergies*] Review of Systems Constitutional: Constitutional: Reports no additional constitutional complaints, Denies chills, Denies fever(s) and Denies night sweats Eyes: Eyes: Reports no additional eye complaints, Denies blurry vision, Denies change in vision, Denies diplopia, Denies eye discharge, Denies loss of vision and Denies eye pain ENT: Denies dizziness Cardiovascular: Cardiovascular: Reports no additional cardiovascular complaints, Denies chest pain, Denies lightheadedness, Denies Loss of Consciousness and Denies dyspnea Respiratory: Respiratory: Reports no additional respiratory complaints and Denies dyspnea Gastrointestinal: Gastrointestinal: Reports no additional gastrointestinal complaints, Denies abdominal pain, Denies melena, Denies hematochezia, Denies change in bowel habits and Denies change in stool character Genitourinary: Genitourinary: Denies hematuria, Denies urinary frequency, Denies dysuria, Denies urinary incontinence, Denies urinary hesitancy and Denies urinary urgency Musculoskeletal: Musculoskeletal: Reports no additional musculoskeletal complaints, Denies numbness and Denies tingling Neurologic: Denies dizziness, Denies loss of vision, Denies numbness, Reports seizure-like activity and Denies tingling Psychiatric: Psychiatric: Reports no additional psychiatric complaints Endocrine: Endocrine: Reports no additional endocrine complaints Hematologic/Lymphatic: Hematologic/Lymphatic: Reports no additional hematologic/lymphatic complaints Allergic/Immunologic: Allergic/Immunologic: Reports no additional allergic/immunologic complaints PMFSH Past Medical History Attestation statement: The following information was validated with the patient. Source: old records reviewed and nursing notes reviewed Medical History Mood disorder Social History Social History Household Members: Family Housing: House Do you presently have visiting nurse or other home services: No Alcohol intake: current Alcohol intake frequency: a few times a month Alcohol type: hard liquor Patient Tobacco Use Status: Never used Tobacco Substance Use Type: Marijuana Advance Directives: No Advance Directives Information Provided: No Do you have a plan to hurt others: No Plan service: No Physical Exam ED Vital Signs: Vital Signs - 24 hr 11/26/23 14:29 11/26/23 14:35 Temperature 98 F 98.1 F Pulse Rate 80 108 H Respiratory Rate 16 18 Blood Pressure 126/81 126/81 Pulse Oximetry 100 98 Oxygen Delivery Method Room Air Room Air BMI result Body Mass Index 24.7 Const General: cooperative, no acute distress, alert and awake Nutritional Appearance: well nourished Orientation/consciousness: patient oriented x3 Limitations: no limitations HENMT Head: Yes normal to inspection and Yes atraumatic Ears: hearing grossly normal bilaterally and external ears normal General nose exam: Normal external nose present, no nasal discharge noted and no epistaxis Face and sinus: Yes normal facial exam, No abrasion and No laceration Mouth: Normal oral and palatal mucosa present, no drooling and no muffled voice Eyes General: appearance normal, both eyes and all related structures Periorbital: periorbital findings normal Eyelids: Yes eyelids normal Conjunctivae: conjunctivae normal Pupils: Equal, round and reactive pupils present EOM: EOMs intact bilaterally Neck Neck: Yes normal visual inspection, Yes full ROM and Yes no lymphadenopathy Chest Chest palpation & inspection: normal inspection of the chest Resp Effort & Inspection: normal respiratory effort and able to speak in complete sentences GI Inspection: Yes normal to inspection Neuro General: patient oriented x3 and moves all extremities Cranial nerves: Yes Equal, round and reactive pupils present Cognition (Neuro): normal cognition Extrem General: Yes normal to inspection, Yes full ROM and Yes capillary refill normal Psych Appearance: grossly normal Mental Status: mental status grossly normal Affect: normal affect Attitude: cooperative Thought process: Normal thought process present Thought content: Normal thought content present Insight: Good insight present (Psych) Medications Administered Discontinued Medications Generic Name Dose Route Start Last Admin Trade Name Marcoq PRN Reason Stop Dose Admin Levetiracetam 1,000 mg in 100 mls @ 400 mls/hr 11/26/23 14:25 11/26/23 14:56 Keppra IV 11/26/23 14:39 Infused ONCE ONE Infusion Magnesium Sulfate 2 gm in 50 mls @ 25 mls/hr 11/26/23 15:03 11/26/23 17:27 Magnesium Sulfate/H2o IV 11/26/23 17:02 Infused ONCE ONE Infusion Potassium Chloride 40 meq 11/26/23 15:13 11/26/23 15:27 Potassium Chloride Packet 20 Meq Packet PO 11/26/23 15:14 40 meq ONCE ONE Administration Medical Decision Making Medical Decision Making [facility] Narrative: Patient is a 33 year old assigned female at with a history of seizures - on keppra presenting to the emergency department today after a seizure. Patient's physical exam was unremarkable. Patient's blood work showed a decreased magnesium of 0.7. Patient was given IV magnesium and a level was repeated and was 1.6. Patient's initial potassium was 3.1 however, repeat was 3.6 after receiving potassium. Patient was given a gram of keppra while in the department and given strict instructions to take her medications as prescribed. Patient's EKG was unremarkable. I explained my physical exam findings as well as all test results to the patient. I answered all questions asked by the patient. I stressed the importance of the patient taking her medication as directed (either prescribed or as the over the counter packaging recommends). I stressed the importance of the patient following up with her primary care provider and her neurologist. I stressed the importance of the patient returning to the emergency department immediately if her symptoms were to worsen or if she were to develop any dizziness, shortness of breath, difficulty breathing, chest pain, blurry vision, loss of vision, nausea, vomiting, abdominal pain, fever, chills, back pain, or any other complaints. Patient verbalized agreement and understanding with this treatment plan and discharge. Differential Diagnosis Differential Diagnoses: The differential diagnosis associated with the presentation includes Seizure Medication non-compliance Hypomagnesemia Admission/Observation Consideration of admission/observation: Escalation of care including admission/observation considered Patient would have been admitted to the hospital had her work up had any findings where hospital admission was appropriate and her clinical presentation warranted hospital admission. Lab Data [facility] Lab Attestation statement: I reviewed the patient's lab results. My interpretation of these results are in the [facility] Rationale portion of this note. 11/26/23 14:38 11/26/23 17:26 Labs: Lab Results 11/26/23 11/26/23 Range/Units 14:38 17:26 WBC 3.5 L (4.8-10.8) X10*3/uL RBC 3.07 L (4.20-5.50) X10*6/uL Hgb 11.0 L (12.0-16.0) g/dl Hct 31.9 L (37.0-47.0) % MCV 103.9 H (80.0-98.0) fL MCH 35.8 H (27.0-33.0) pg MCHC 34.5 (31.0-35.0) g/dl RDW 14.4 (11.0-16.0) % Plt Count 243 (160-400) X10*3/uL MPV 9.0 L (9.4-12.3) fL Immature Gran % (Auto) 0.3 (0.0-0.4) % Neut % (Auto) 47.5 (45-73) % Lymph % (Auto) 44.8 H (20-40) % [place] % (Auto) 6.5 (2-11) % Eos % (Auto) 0.3 (0-4) % Baso % (Auto) 0.6 (0-2) % Lymph # (Auto) 1.6 (1.2-4.9) X10*3/uL [place] # (Auto) 0.2 (0.1-1.2) X10*3/uL Eos # (Auto) 0.0 (0.0-0.4) X10*3/uL Baso # (Auto) 0.0 (0.0-0.2) X10*3/uL Abs Immat Gran (auto) 0.01 (0.00-0.03) X10*3/uL Absolute Neuts (auto) 1.7 L (2.0-8.3) x10*3/uL Absolute Nucleated RBC 0.000 (0.0-0.012) X10*3/uL Nucleated RBC % (auto) 0.0 (0.0-0.2) /100WBC Sodium 145 144 (135-145) mmol/L Potassium 3.1 L 3.6 (3.3-5.1) mmol/L Chloride 106 107 (96-108) mmol/L Carbon Dioxide 24 23 (22-29) mmol/L Anion Gap 18 18 (12-20) BUN 8 L 7 L (9-16) mg/dL Creatinine 0.89 0.80 (0.5-1.4) mg/dL Estim Creat Clear Calc 84.9 94.4 Estimated GFR > 60 > 60 Random Glucose 107 95 (60-115) mg/dL Calcium 7.6 L D 8.0 L (8.4-10.2) mg/dL Magnesium 0.7 L* 1.6 (1.6-2.6) mg/dL Total Bilirubin 0.5 0.5 (0.0-1.0) mg/dL AST 44 H 44 H (5-31) U/L ALT 36 H 34 H (0-31) U/L Alkaline Phosphatase 74 76 (39-117) U/L Total Protein 6.9 7.4 (6.5-8.0) g/dL Albumin 4.2 4.4 (3.5-5.0) g/dL Beta HCG, Quant < 2 mIU/mL Hold Yellow Top See Note Levetiracetam Cancelled Independent Interpretation I performed an independent interpretation of an: EKG Interpretation: Vent. Rate: 070 BPM Atrial Rate: 070 BPM P-R Int: 166 ms QRS Dur: 074 ms QT Int: 416 ms P-R-T Axes: 063 058 046 degrees QTc Int: 449 ms Normal sinus rhythm with sinus arrhythmia Low voltage QRS Borderline ECG When compared with ECG of 13-JAN-2017 18:32, No significant change was found Electronically Signed By:BENJAMIN HERNANDEZ MD Dictated By: Benjamin Hernandez MD Signed By: Electronically signed by Benjamin Hernandez MD 11/27/23 1206 Radiology Impression Discussion of test interpretation with radiology: I have reviewed the radiologist's reading. Independent Historian Clinical information obtained from an independent historian. History obtained from or confirmed by: EMS (EMS provided additional history and confirmed the history provided by the patient.) Critical Care Time Critical Care Time Critical Care Time: Yes Total Critical Care Time: 41 Attestation: I spent 41 minutes of Critical Care Time with this patient. This does not include time spent on separately reported billable procedures. Discharge Plan Discharge Clinical Impression: Seizure, Hypokalemia, Hypomagnesemia Patient Disposition: Home, Self-Care Instructions: Potassium Content of Foods List (ED), Hypokalemia (ED), Hypomagnesemia (ED), Recurrent Seizures in Adults (ED) Additional Instructions: Follow up with your primary care provider. Return to the emergency department immediately if your symptoms worsen or if you develop any dizziness, shortness of breath, difficulty breathing, chest pain, blurry vision, loss of vision, nausea, vomiting, abdominal pain, fever, chills, back pain, or any other complaints. Prescriptions: No Action valacyclovir 500 mg tablet 500 mg PO DAILY magnesium oxide 400 mg (241.3 mg magnesium) tablet 400 mg PO DAILY hydroxyzine HCl 25 mg tablet 25 mg PO Q8H PRN (Reason: anxiety) sertraline 50 mg tablet 50 mg PO DAILY medroxyprogesterone 150 mg/mL suspension 150 mg IM [id number] mecobalamin (vitamin B12) 5,000 mcg tablet,disintegrating 5,000 mcg PO DAILY levetiracetam 1,000 mg tablet 1,000 mg PO BID Qty: 60 0RF Referrals: [facility] [place]Provider Group] [facility] [place]Provider Group] [facility] [Provider Group] Interventions: ED Discharge Assessment Last Done: 11/26/23 18:51 Discharge Date/Time: 11/26/23 18:51 Print Language: Tristanian
[2023-11-26 14:29] VITALS: BP 121/88; BP 126/81; PULSE 110; PULSE 80; RESP 16; TEMP 36.6; O2SAT 100; O2SAT 98; BMI 24.7
[2023-11-26 14:35] VITALS: BP 126/81; PULSE 108; RESP 18; TEMP 36.7; O2SAT 98
[2023-11-26] MEDS: levETIRAcetam in NaCl (iso-os) 1,000 MG/100 ML PIGGYBACK 400 MG IV (14:41)
[2023-11-26 14:42] LABS: MANUAL DIFF FLAG NO
[2023-11-26 14:44] LABS: Basophils Percent Auto 0.6 % (0-2); Eosinophils Percent Auto 0.3 % (0-4); Hematocrit 31.9 % (37.0-47.0); Imm Gran Abs Auto 0.01 X10*3/uL (0.00-0.03); Imm Gran Pct Auto 0.3 % (0.0-0.4); Lymphocytes Absolute Auto 1.6 X10*3/uL (1.2-4.9); Lymphocytes Percent Auto 44.8 % (20-40); Mean Corpuscular HGB Conc 34.5 g/dl (31.0-35.0); Mean Corpuscular Hemoglobin 35.8 pg (27.0-33.0); Mean Corpuscular Volume 103.9 fL (80.0-98.0); Monocytes Absolute Auto 0.2 X10*3/uL (0.1-1.2); Monocytes Percent Auto 6.5 % (2-11); Neutrophils Absolute Auto 1.7 x10*3/uL (2.0-8.3); Neutrophils Percent Auto 47.5 % (45-73); Platelet Count 243 X10*3/uL (160-400); Red Blood Count 3.07 X10*6/uL (4.20-5.50); Red Cell Distribution Width 14.4 % (11.0-16.0); White Blood Count 3.5 X10*3/uL (4.8-10.8)
--- NOTE | 2023-11-26 14:45 | PC.NURSE ---
poliemily from home s/p witnessed seizure after missing dose of keppra this am. during EMS transport - pt had another witnessed seizure lasting approximately 90 seconds. no trauma noted. EMS administered 2mg versed. upon ED arrival - pt leavning off to the side in bed but alert and oriented/ pt able to follow commands/answer questions appropriately. pt no loner seems to be in post-ictal state. seizure pads in place for safety precautions. labs obtained/sent to lab. 18gIV in the left outer AC via EMS. medication administered per provider order. pt seems to be in no apparent distress. no sob/wob noted. respirations even/unlabored. plan of care ongoing. call angel placed within reach.
[2023-11-26 15:04] LABS: Magnesium 0.7 mg/dL (1.6-2.6)
--- NOTE | 2023-11-26 15:04 | ECG_ITS ---
Test Reason : HYPOMAG Blood Pressure : / mmHG Vent. Rate : 070 BPM Atrial Rate : 070 BPM P-R Int : 166 ms QRS Dur : 074 ms QT Int : 416 ms P-R-T Axes : 063 058 046 degrees QTc Int : 449 ms Normal sinus rhythm with sinus arrhythmia Low voltage QRS Borderline ECG When compared with ECG of 13-JAN-2017 18:32, No significant change was found Referred By: Carol Clark Electronically Signed By:RHETT MCGREGOR MD
[2023-11-26 15:05] LABS: Alanine Aminotransferase 36 U/L (0-31); Albumin Level 4.2 g/dL (3.5-5.0); Alkaline Phosphatase 74 U/L (39-117); Anion Gap 18 (12-20); Aspartate Amino Transferase 44 U/L (5-31); Bilirubin Total 0.5 mg/dL (0.0-1.0); Blood Urea Nitrogen 8 mg/dL (9-16); Calcium 7.6 mg/dL (8.4-10.2); Carbon Dioxide 24 mmol/L (22-29); Chloride 106 mmol/L (96-108); Creatinine Clr Calc Pharmacy 84.9; Estimated Glomerular Filt Rate > 60; Glucose Random 107 mg/dL (60-115); Potassium 3.1 mmol/L (3.3-5.1); Sodium 145 mmol/L (135-145); Total Protein 6.9 g/dL (6.5-8.0)
[2023-11-26 15:12] LABS: HCG Quantitative < 2 mIU/mL
[2023-11-26] MEDS: Potassium Chloride Packet 20 MEQ PACKET 40 MEQ PO (15:27)
[2023-11-26] MEDS: Magnesium Sulfate/H2O 2 GM/50 ML PIGGYBACK IV (15:27)
--- NOTE | 2023-11-26 15:31 | PC.NURSE ---
medication administered per provider order. ekg performed by tech. pt continues to rest in no apparent distress w/ the lights dimmed. respirations remain even/unlabored. seizure pads remain in place. call angel placed within reach.
[2023-11-26 17:04] VITALS: BP 118/89; PULSE 77; RESP 16; TEMP 36.6; O2SAT 99
--- NOTE | 2023-11-26 17:30 | PC.NURSE ---
repeat labs obtained/sent to lab.
[2023-11-26 17:49] LABS: Alanine Aminotransferase 34 U/L (0-31); Albumin Level 4.4 g/dL (3.5-5.0); Alkaline Phosphatase 76 U/L (39-117); Anion Gap 18 (12-20); Aspartate Amino Transferase 44 U/L (5-31); Bilirubin Total 0.5 mg/dL (0.0-1.0); Blood Urea Nitrogen 7 mg/dL (9-16); Carbon Dioxide 23 mmol/L (22-29); Chloride 107 mmol/L (96-108); Creatinine Clr Calc Pharmacy 94.4; Estimated Glomerular Filt Rate > 60; Glucose Random 95 mg/dL (60-115); Potassium 3.6 mmol/L (3.3-5.1); Sodium 144 mmol/L (135-145); Total Protein 7.4 g/dL (6.5-8.0)
[2023-11-26 18:18] LABS: Magnesium 1.6 mg/dL (1.6-2.6)
[2023-11-26 18:51] VITALS: BP 118/89; PULSE 77; RESP 16; TEMP 36.6; O2SAT 99
== END 2023-11-26 18:51 | disposition home or self-care (01) ==
PROVIDERS: Physician Assistant Medical; Emergency Provider Emergency Medicine
DX: R56.9 Unspecified convulsions (principal); E87.6 Hypokalemia; E83.42 Hypomagnesemia; F39 Unspecified mood [affective] disorder
CPT/HCPCS: 36415; 80053; 80177; 83735; 84702; 85025; 93005; 96365; 96366; 96375; 99284; 99285; J1953; J3475

== ENCOUNTER → 2023-11-26 15:04 | Outpatient (BNV) | payer MEDICARE, MEDICAID, SELFPAY | PROVIDERS: Emergency Provider Emergency Medicine; Visit Provider Internal Medicine Cardiovascular Disease | DX: E83.42 Hypomagnesemia (principal) | CPT/HCPCS: 93010 ==

== ENCOUNTER 2023-12-08 14:21 | Emergency (ER) | payer MEDICARE, MEDICAID, SELFPAY ==
--- NOTE | 2023-12-08 14:27 | ED.SEIZURE ---
HPI - Seizure General Chief Complaint: Seizure Stated Complaint: MULTIPLE SEIZURES POSTICTAL PER EMS Time Seen by Provider: 12/08/23 14:24 Source: patient Mode of arrival: ambulatory Limitations: no limitations History of Present Illness HPI Narrative: 33-year-old female with seizure nonepileptic seizures alcohol use disorder bipolar disorder who presents emergency department multiple seizures. Patient was here in October had a complete workup including EEGs that have found any seizure-like activity was seen by Neurology they stated they could not rule out a seizure and the patient was transferred to [facility] for a video EEG. She states those were all normal. She has been unable to follow up with Neurology. She states she has had a decreased appetite. She states she slept in and did not take her keppra. She was home alone and for EMS witnessed a seizure she was given versed and was not ever post ictal. MD complaint: seizure Seizure History: Yes Related Data Home Medications ?Medication ?Instructions ?Recorded ?Confirmed hydroxyzine HCl 25 mg tablet 25 mg PO Q8H PRN anxiety 10/16/23 10/16/23 magnesium oxide 400 mg (241.3 mg 400 mg PO DAILY 10/16/23 10/16/23 magnesium) tablet mecobalamin (vitamin B12) 5,000 5,000 mcg PO DAILY 10/16/23 10/16/23 mcg disintegrating tablet medroxyprogesterone 150 mg/mL 150 mg IM [id number] 10/16/23 10/16/23 intramuscular suspension sertraline 50 mg tablet 50 mg PO DAILY 10/16/23 10/16/23 valacyclovir 500 mg tablet 500 mg PO DAILY 10/16/23 10/16/23 Previous Rx's ?Medication ?Instructions ?Recorded levetiracetam 1,000 mg tablet 1,000 mg PO BID #60 tabs 10/15/23 Allergies Allergy/AdvReac Type Severity Reaction Status Date / Time No Known Allergies Allergy Verified 12/08/23 14:33 [No Known Allergies*] Review of Systems Review of Systems: Review of systems: General: Patient denies any fever chills recent illness or falls Musculoskeletal: Denies back pain or body aches or other injuries HEENT: denies headache, runny nose, ear pain Respiratory: denies shortness of breath, cough Cardiovascular: no chest pain or palpitations : denies dysuria, frequency Abdomen: no nausea vomiting denies abdominal pain Extremities: no swelling, no pain Skin: no diaphoresis Yes all other systems are reviewed and are negative PMFSH Past Medical History Medical History Mood disorder Social History Social History Household Members: Family Housing: House Do you presently have visiting nurse or other home services: No Alcohol intake: current Alcohol intake frequency: a few times a month Alcohol type: hard liquor Patient Tobacco Use Status: Never used Tobacco Substance Use Type: Marijuana Advance Directives: No Advance Directives Information Provided: No Do you have a plan to hurt others: No Plan service: No Physical Exam Vital Signs: Vital Signs: Last Vital Signs Temp 98.8 F 12/08/23 16:00 Pulse 85 12/08/23 16:00 Resp 16 12/08/23 16:00 BP 118/72 12/08/23 16:00 Pulse Ox 98 12/08/23 16:00 O2 Del Method Room Air 12/08/23 16:00 BMI result Body Mass Index 22.7 Neurological exam: CN II- XII tested. Patient is alert and oriented to person place and time. Patient has no dysphagia or dysarthia, denies good vision in all four vision parr no nystagmus on exam, good strength to upper and lower extremities with normal reflexes to brachioradialis, wrist, patella and achilles. Negative romberg, good finger to nose and heel to yadav. General: Well-appearing well-nourished in no signs of distress HEENT: Normocephalic atraumatic Neck: No signs of JVD, no masses no tenderness or lymphadenopathy Cardiovascular: Regular rate and rhythm Respiratory: Clear to auscultation bilaterally Abdomen: Soft nontender no masses Extremities: Normal pedal pulses no signs of edema Skin: Dry warm no rashes Back: No tenderness full ROM Course Course Course Narrative: Shortly after arrival patient started vomiting will give patient Haldol and Benadryl. Reevaluation(s) Reevaluation #1: Patient noted to have lactic acidosis 5 as well as an low magnesium level. Which was repleted. Patient has been sleeping the entire time here repeat lactate gone down to 2.4 I do feel comfortable discharging home with that level and the repeat magnesium is 2.1 I will discharge the patient. Medications Administered Discontinued Medications Generic Name Dose Route Start Last Admin Trade Name Marcoq PRN Reason Stop Dose Admin Diphenhydramine HCl 25 mg 12/08/23 14:39 12/08/23 14:47 Diphenhydramine Hcl 50 Mg/Ml Vial IVPUSH 12/08/23 14:40 25 mg ONCE ONE Administration Haloperidol Lactate 5 mg 12/08/23 14:39 12/08/23 14:47 Haloperidol Lactate 5 Mg/Ml Vial IVPUSH 12/08/23 14:40 5 mg STAT STA Administration Sodium Chloride 1,000 mls @ 999 mls/hr 12/08/23 14:45 12/08/23 17:21 Ns IV 12/08/23 15:45 Infused .Q1H1M DAV Infusion Levetiracetam 1,000 mg in 100 mls @ 400 mls/hr 12/08/23 14:36 12/08/23 15:31 Keppra IV 12/08/23 14:50 Infused ONCE ONE Infusion Magnesium Sulfate/Dextrose 1 gm in 100 mls @ 100 mls/hr 12/08/23 14:36 12/08/23 17:08 Magnesium Sulfate/D5w IV 12/08/23 15:35 Infused ONCE ONE Infusion Sodium Chloride 1,000 mls @ 999 mls/hr 12/08/23 15:30 12/08/23 17:20 Ns IV 12/08/23 16:30 Infused .Q1H1M DAV Infusion Magnesium Sulfate/Dextrose 1 gm in 100 mls @ 100 mls/hr 12/08/23 15:37 12/08/23 17:38 Magnesium Sulfate/D5w IV 12/08/23 16:36 Infused ONCE ONE Infusion Potassium Chloride 40 meq 12/08/23 14:38 12/08/23 14:47 Potassium Chloride Er 20 Meq Tab.Er.Prt PO 12/08/23 14:39 40 meq ONCE ONE Administration Medical Decision Making Medical Decision Making [facility] Narrative: I will the patient with a g of Keppra will give some potassium and magnesium waiting for labs and checking he has had some level as well as lactic acid Differential Diagnosis Differential Diagnoses: The differential diagnosis associated with the presentation includes Psychogenic seizures hypomagnesemia hypokalemia Admission/Observation Consideration of admission/observation: Escalation of care including admission/observation considered Lab Data [facility] Lab Attestation statement: I reviewed the patient's lab results. 12/08/23 17:57 Labs: Lab Results 12/08/23 12/08/23 Range/Units 14:57 17:57 Sodium 139 140 (135-145) mmol/L Potassium 3.2 L 3.6 (3.3-5.1) mmol/L Chloride 99 107 (96-108) mmol/L Carbon Dioxide 22 22 (22-29) mmol/L Anion Gap 21 H 15 (12-20) BUN 12 9 (9-16) mg/dL Creatinine 0.87 0.79 (0.5-1.4) mg/dL Estim Creat Clear Calc 93.6 103.1 Estimated GFR > 60 > 60 Random Glucose 178 H 105 (60-115) mg/dL Lactic Acid 5.2 H* (0.5-2.0) mmol/L Calcium 8.6 D 7.2 L D (8.4-10.2) mg/dL Magnesium 0.9 L* 2.1 (1.6-2.6) mg/dL Independent Interpretation I performed an independent interpretation of an: EKG Discharge Plan Discharge Clinical Impression: Seizure disorder, Generalized seizure, Hypomagnesemia Patient Disposition: Home, Self-Care Instructions: Epilepsy (DC), Hypomagnesemia (ED) Additional Instructions: You were seen today for low magnesium as well as a seizure. Both repleted please take medications as prescribed if you have any other concerns please do not hesitate to come back to emergency department. Prescriptions: No Action valacyclovir 500 mg tablet 500 mg PO DAILY magnesium oxide 400 mg (241.3 mg magnesium) tablet 400 mg PO DAILY hydroxyzine HCl 25 mg tablet 25 mg PO Q8H PRN (Reason: anxiety) sertraline 50 mg tablet 50 mg PO DAILY medroxyprogesterone 150 mg/mL suspension 150 mg IM [id number] mecobalamin (vitamin B12) 5,000 mcg tablet,disintegrating 5,000 mcg PO DAILY levetiracetam 1,000 mg tablet 1,000 mg PO BID Qty: 60 0RF Print Language: Upper Sorbian
[2023-12-08 14:31] VITALS: BP 137/96; BP 138/69; PULSE 119; PULSE 137; RESP 16; TEMP 36.7; O2SAT 97; O2SAT 98; BMI 22.7
--- NOTE | 2023-12-08 14:36 | ECG_ITS ---
Test Reason : SEIZURE Blood Pressure : / mmHG Vent. Rate : 115 BPM Atrial Rate : 115 BPM P-R Int : 160 ms QRS Dur : 086 ms QT Int : 340 ms P-R-T Axes : 051 098 036 degrees QTc Int : 470 ms Sinus tachycardia Possible Left atrial enlargement Rightward axis Borderline ECG When compared with ECG of 26-NOV-2023 15:28, Vent. rate has increased BY 45 BPM Referred By: Melvin Cueva Electronically Signed By:Kyle Condon
[2023-12-08] MEDS: Potassium Chloride ER 20 MEQ TAB.ER.PRT 40 MEQ PO (14:47)
[2023-12-08] MEDS: diphenhydrAMINE HCL 50 MG/ML VIAL 25 MG IVPUSH (14:47)
[2023-12-08] MEDS: Haloperidol Lactate 5 MG/ML VIAL IVPUSH (14:47)
[2023-12-08] MEDS: levETIRAcetam in NaCl (iso-os) 1,000 MG/100 ML PIGGYBACK 400 MG IV (14:51)
[2023-12-08] MEDS: 0.9 % Sodium Chloride 1,000 ML 999 ML IV ×2 (14:57→15:32)
[2023-12-08 15:24] LABS: Anion Gap 21 (12-20); Blood Urea Nitrogen 12 mg/dL (9-16); Calcium 8.6 mg/dL (8.4-10.2); Carbon Dioxide 22 mmol/L (22-29); Chloride 99 mmol/L (96-108); Creatinine Clr Calc Pharmacy 93.6; Estimated Glomerular Filt Rate > 60; Glucose Random 178 mg/dL (60-115); Potassium 3.2 mmol/L (3.3-5.1); Sodium 139 mmol/L (135-145)
[2023-12-08 15:27] LABS: Lactic Acid 5.2 mmol/L (0.5-2.0); Magnesium 0.9 mg/dL (1.6-2.6)
[2023-12-08] MEDS: Magnesium Sulfate/D5W 1 GM/100 ML PIGGYBACK IV ×2 (15:31→16:21)
[2023-12-08 16:00] VITALS: BP 118/72; PULSE 85; RESP 16; TEMP 37.1; O2SAT 98
[2023-12-08 17:00] LABS: Reflex Lactate? Lactic Acid Added
[2023-12-08 18:00] VITALS: BP 118/69; PULSE 69; RESP 16; TEMP 36.8; O2SAT 99
[2023-12-08 18:24] LABS: Anion Gap 15 (12-20); Blood Urea Nitrogen 9 mg/dL (9-16); Calcium 7.2 mg/dL (8.4-10.2); Carbon Dioxide 22 mmol/L (22-29); Chloride 107 mmol/L (96-108); Creatinine Clr Calc Pharmacy 103.1; Estimated Glomerular Filt Rate > 60; Glucose Random 105 mg/dL (60-115); Magnesium 2.1 mg/dL (1.6-2.6); Potassium 3.6 mmol/L (3.3-5.1); Sodium 140 mmol/L (135-145)
[2023-12-08 18:29] LABS: Lactic Acid 2.4 mmol/L (0.5-2.0)
[2023-12-08 19:00] VITALS: BP 118/69; PULSE 69; RESP 18; TEMP 36.8; O2SAT 98
[2023-12-08 20:03] LABS: Reflex Lactate? Lactic Acid Added
== END 2023-12-08 19:01 | disposition home or self-care (01) ==
PROVIDERS: Emergency Provider Student in an Organized Health Care Education/Training Program
DX: G40.409 Other generalized epilepsy and epileptic syndromes, not intractable, without status epilepticus (principal); E83.42 Hypomagnesemia; E87.20 Acidosis, unspecified; Z79.899 Other long term (current) drug therapy
CPT/HCPCS: 36415; 80048; 83605; 83735; 93005; 96365; 96366; 96367; 96368; 96375; 99285; J1200; J1630; J1953; J3475

== ENCOUNTER → 2023-12-08 14:36 | Outpatient (BNV) | payer MEDICARE, MEDICAID, SELFPAY | PROVIDERS: Emergency Provider Student in an Organized Health Care Education/Training Program; Visit Provider Internal Medicine Cardiovascular Disease | DX: R00.0 Tachycardia, unspecified (principal) | CPT/HCPCS: 93010 ==

== ENCOUNTER 2023-12-14 22:50 | Emergency (ER) | payer MEDICARE, MEDICAID, SELFPAY ==
[2023-12-14] MEDS: LORazepam 2 MG/ML VIAL IVPUSH (22:59)
[2023-12-14] MEDS: levETIRAcetam in NaCl (iso-os) 1,000 MG/100 ML PIGGYBACK 400 MG IV (22:59)
[2023-12-14 23:02] VITALS: BP 121/87; BP 124/73; PULSE 114; PULSE 91; RESP 13; TEMP 36.6; O2SAT 94; O2SAT 99; BMI 27.8
[2023-12-14 23:28] LABS: Anion Gap 16 (12-20); Blood Urea Nitrogen 9 mg/dL (9-16); Calcium 8.7 mg/dL (8.4-10.2); Carbon Dioxide 23 mmol/L (22-29); Chloride 110 mmol/L (96-108); Creatinine Clr Calc Pharmacy 105.7; Estimated Glomerular Filt Rate > 60; Ethanol 340 mg/dL; Glucose Random 98 mg/dL (60-115); Potassium 3.1 mmol/L (3.3-5.1); Sodium 146 mmol/L (135-145)
[2023-12-14 23:35] LABS: Basophils Percent Auto 1.1 % (0-2); Eosinophils Percent Auto 0.4 % (0-4); Hemoglobin 10.6 g/dl (12.0-16.0); Lymphocytes Absolute Auto 1.7 X10*3/uL (1.2-4.9); Lymphocytes Percent Auto 59.6 % (20-40); MANUAL DIFF FLAG SCAN; Mean Corpuscular HGB Conc 34.2 g/dl (31.0-35.0); Mean Corpuscular Hemoglobin 36.8 pg (27.0-33.0); Mean Corpuscular Volume 107.6 fL (80.0-98.0); Mean Platelet Volume 8.8 fL (9.4-12.3); Monocytes Absolute Auto 0.2 X10*3/uL (0.1-1.2); Monocytes Percent Auto 7.4 % (2-11); NRBC Pct Auto 0.7 /100WBC (0.0-0.2); Neutrophils Absolute Auto 0.9 x10*3/uL (2.0-8.3); Neutrophils Percent Auto 31.5 % (45-73); Platelet Count 159 X10*3/uL (160-400); Red Blood Count 2.88 X10*6/uL (4.20-5.50); Red Cell Distribution Width 14.4 % (11.0-16.0); SCAN SMEAR FLAG 1; White Blood Count 2.8 X10*3/uL (4.8-10.8)
[2023-12-14 23:36] LABS: SLIDE REVIEW VERIFIED
[2023-12-14 23:49] VITALS: BP 113/68; PULSE 102; RESP 20; O2SAT 97
[2023-12-15 00:32] VITALS: BP 111/64; PULSE 86; RESP 19; O2SAT 99
[2023-12-15 03:18] VITALS: BP 117/82; PULSE 82; RESP 17; O2SAT 97
--- NOTE | 2023-12-15 03:29 | ED.GENADULT ---
HPI - General Adult General Chief complaint: Seizure Stated complaint: multiple seizures Time Seen by Provider: 12/14/23 22:56 Source: EMS Mode of arrival: EMS Limitations: altered mental status History of Present Illness ED Provider: Dr. Cohen HPI narrative: Patient is a known alcoholic with history of seizures who recently was switched to keppra but has been non compliant. Today she drank alcohol and has had multiple seizures at home. Patient presents with atypical seizures that appear to be pseudoseizure. Onset (ago): hour(s) Related Data Home Medications ?Medication ?Instructions ?Recorded ?Confirmed hydroxyzine HCl 25 mg tablet 25 mg PO Q8H PRN anxiety 10/16/23 10/16/23 magnesium oxide 400 mg (241.3 mg 400 mg PO DAILY 10/16/23 10/16/23 magnesium) tablet mecobalamin (vitamin B12) 5,000 5,000 mcg PO DAILY 10/16/23 10/16/23 mcg disintegrating tablet medroxyprogesterone 150 mg/mL 150 mg IM [id number] 10/16/23 10/16/23 intramuscular suspension sertraline 50 mg tablet 50 mg PO DAILY 10/16/23 10/16/23 valacyclovir 500 mg tablet 500 mg PO DAILY 10/16/23 10/16/23 Previous Rx's ?Medication ?Instructions ?Recorded levetiracetam 1,000 mg tablet 1,000 mg PO BID #60 tabs 10/15/23 Allergies Allergy/AdvReac Type Severity Reaction Status Date / Time No Known Allergies Allergy Verified 12/14/23 23:06 [No Known Allergies*] Review of Systems Review of Systems: Yes Unobtainable due to mental status Neurologic: Denies Sensory deficit (Neuro) [facility] Past Medical History Medical History Mood disorder Social History Social History Household Members: Family Housing: House Do you presently have visiting nurse or other home services: No Alcohol intake: current Alcohol intake frequency: a few times a month Alcohol type: hard liquor Patient Tobacco Use Status: Never used Tobacco Substance Use Type: Marijuana Advance Directives: No Advance Directives Information Provided: Yes Do you have a plan to hurt others: No Plan service: No Physical Exam ED Vital Signs: Vital Signs - 24 hr 12/14/23 23:02 12/14/23 23:49 12/15/23 00:32 Temperature 97.8 F Pulse Rate 91 102 H 86 Respiratory Rate 13 20 19 Blood Pressure 121/87 113/68 111/64 Pulse Oximetry 94 97 99 Oxygen Delivery Method Room Air Room Air Room Air 12/15/23 03:18 Temperature Pulse Rate 82 Respiratory Rate 17 Blood Pressure 117/82 Pulse Oximetry 97 Oxygen Delivery Method Room Air BMI result Body Mass Index 27.8 Const Other: intoxicated female with bizarre movements that resolve spontaneously Nutritional Appearance: average body habitus Limitations: altered mental status HENMT Head: Yes normal to inspection Ears: external ears normal General nose exam: Normal external nose present Mouth: Normal oral and palatal mucosa present and oropharynx normal Throat: Yes posterior oropharynx normal Eyes General: appearance normal, both eyes and all related structures Neck Neck: Yes normal visual inspection Chest Chest palpation & inspection: normal inspection of the chest Resp Auscultation: clear to auscultation bilaterally Cardio Jugular venous distension: no JVD Rate: regular rate Rhythm: regular rhythm Heart sounds: S1 normal heart sound present and S2 normal heart sound present GI Inspection: Yes normal to inspection Palpation (GI): Soft to palpation, nontender and No hepatosplenomegaly present Auscultation: normal bowel sounds General: Yes no CVA tenderness Back/Spine/Pelvis Back: no CVA tenderness Skin General skin exam: no rashes or lesions noted Neuro Cranial nerves: Yes CN's II-XII intact bilaterally Motor exam (neuro): 5/5 motor strength present throughout Sensory Exam: No Sensory deficit (Neuro) Extrem General: Yes normal to inspection Psych Other: altered mental status Course Reevaluation(s) Reevaluation #1: patient with multiple events that appear like pseudoseizure, she is very intoxicated. Will allow patient to sober up. At this time physician observation started because the patient needs more time to sober up Time: 03:38 Reevaluation #2: I spent 60 minutes of critical care, with interventions, assessments, speaking to patient, consultants, and family. Time: 03:44 Medications Administered Discontinued Medications Generic Name Dose Route Start Last Admin Trade Name Freq PRN Reason Stop Dose Admin Levetiracetam 1,000 mg in 100 mls @ 400 mls/hr 12/14/23 22:56 12/14/23 23:16 Keppra IV 12/14/23 23:10 Infused ONCE ONE Infusion Lorazepam 2 mg 12/14/23 22:56 12/14/23 22:59 Lorazepam 2 Mg/Ml Vial IVPUSH 12/14/23 22:57 2 mg ONCE ONE Administration Medical Decision Making Differential Diagnosis Differential Diagnoses: The differential diagnosis associated with the presentation includes (alcohol intoxication, status epilepticus, pseudoseizure) Admission/Observation Consideration of admission/observation: Escalation of care including admission/observation considered (upon arrival patient was considered for admission) Lab Data 12/14/23 23:10 12/14/23 23:10 Labs: Lab Results 12/14/23 Range/Units 23:10 WBC 2.8 L (4.8-10.8) X10*3/uL RBC 2.88 L (4.20-5.50) X10*6/uL Hgb 10.6 L (12.0-16.0) g/dl Hct 31.0 L (37.0-47.0) % MCV 107.6 H (80.0-98.0) fL MCH 36.8 H (27.0-33.0) pg MCHC 34.2 (31.0-35.0) g/dl RDW 14.4 (11.0-16.0) % Plt Count 159 L D (160-400) X10*3/uL MPV 8.8 L (9.4-12.3) fL Immature Gran % (Auto) 0.0 (0.0-0.4) % Neut % (Auto) 31.5 L (45-73) % Lymph % (Auto) 59.6 H (20-40) % [place] % (Auto) 7.4 (2-11) % Eos % (Auto) 0.4 (0-4) % Baso % (Auto) 1.1 (0-2) % Lymph # (Auto) 1.7 (1.2-4.9) X10*3/uL [place] # (Auto) 0.2 (0.1-1.2) X10*3/uL Eos # (Auto) 0.0 (0.0-0.4) X10*3/uL Baso # (Auto) 0.0 (0.0-0.2) X10*3/uL Abs Immat Gran (auto) 0.00 (0.00-0.03) X10*3/uL Absolute Neuts (auto) 0.9 L (2.0-8.3) x10*3/uL Absolute Nucleated RBC 0.020 H (0.0-0.012) X10*3/uL Nucleated RBC % (auto) 0.7 H (0.0-0.2) /100WBC Smear Tech's Comments VERIFIED Sodium 146 H (135-145) mmol/L Potassium 3.1 L (3.3-5.1) mmol/L Chloride 110 H (96-108) mmol/L Carbon Dioxide 23 (22-29) mmol/L Anion Gap 16 (12-20) BUN 9 (9-16) mg/dL Creatinine 0.75 (0.5-1.4) mg/dL Estim Creat Clear Calc 105.7 Estimated GFR > 60 Random Glucose 98 (60-115) mg/dL Calcium 8.7 D (8.4-10.2) mg/dL Hold Yellow Top See Note Ethyl Alcohol 340 H* mg/dL Independent Historian Clinical information obtained from an independent historian. History obtained from or confirmed by: EMS Tests considered The following testing was considered but not selected: CT of brain considered but patient with prior history of similar eventsl Chronic Conditions Patient?s care impacted by: Other (alcoholism) Social Determinants Patient?s care significantly limited by Social Determinants of Health including: Alcoholism and drug addiction in family Discharge Plan Discharge Clinical Impression: Alcohol intoxication, Seizure-like activity Patient Disposition: Still a Patient Prescriptions: No Action valacyclovir 500 mg tablet 500 mg PO DAILY magnesium oxide 400 mg (241.3 mg magnesium) tablet 400 mg PO DAILY hydroxyzine HCl 25 mg tablet 25 mg PO Q8H PRN (Reason: anxiety) sertraline 50 mg tablet 50 mg PO DAILY medroxyprogesterone 150 mg/mL suspension 150 mg IM [id number] mecobalamin (vitamin B12) 5,000 mcg tablet,disintegrating 5,000 mcg PO DAILY levetiracetam 1,000 mg tablet 1,000 mg PO BID Qty: 60 0RF Print Language: Irish
--- NOTE | 2023-12-15 05:18 | PC.NURSE ---
pt has been more awake, alert, continuously asking what happened as she does not remember events of seizures/ambulance transport or why she is in the hospital. all events explained to pt in detail. pt is in no apparent distress, resting comfortably on stretcher. asking to be discharged as she has to get home to her kid. pt informed that she needs a sober ride to walk in and pick her up in order to be discharged per MD jones.
--- NOTE | 2023-12-15 06:11 | PC.NURSE ---
pt states her brother will come pick her up around 0700 this AM. iv lines removed. pt is resting comfortably on stretcher, respirations even and unlabored.
[2023-12-15 09:33] VITALS: BP 130/83; PULSE 91; RESP 13; O2SAT 100
[2023-12-15] MEDS: chlordiazePOXIDE HCl 25 MG CAPSULE 50 MG PO (09:58)
[2023-12-15 12:30] VITALS: BP 146/91; PULSE 88; RESP 18; TEMP 36.7; O2SAT 100
[2023-12-18 17:43] LABS: Levetiracetam Keppra 34.6 mcg/mL (6.0-46.0)
== END 2023-12-15 12:30 | disposition home or self-care (01) ==
PROVIDERS: Emergency Provider Emergency Medicine
DX: F10.220 Alcohol dependence with intoxication, uncomplicated (principal); Y90.8 Blood alcohol level of 240 mg/100 ml or more; R56.9 Unspecified convulsions; Z91.148 Patient's other noncompliance with medication regimen for other reason
CPT/HCPCS: 36415; 80048; 80177; 80307; 85025; 96365; 96375; 99284; J1953; J2060

== ENCOUNTER 2024-01-03 00:14 | Emergency (ER) | payer MEDICARE, MEDICAID, SELFPAY ==
[2024-01-03 00:21] VITALS: BP 128/87; PULSE 108; O2SAT 100
[2024-01-03 00:35] VITALS: BP 122/90; PULSE 103; RESP 18; TEMP 37; O2SAT 97; BMI 23.5
--- NOTE | 2024-01-03 00:41 | MHC.EDTECH ---
Patient was biba from home ,vitals taken ,pt was change into hospital gown ,Patient was hooked up to youth nutritional monitor ,seizure pads in place ,call angel within reach .
[2024-01-03 01:44] VITALS: BP 118/79; PULSE 109; RESP 16; TEMP 36.8; O2SAT 97
--- NOTE | 2024-01-03 01:52 | MHC.EDTECH ---
Patient blood drawn and sent to lab ,Patient awake speak in clear complete sentences ,Patient drank some gingerale .
[2024-01-03 01:59] LABS: Basophils Absolute Auto 0.1 X10*3/uL (0.0-0.2); Basophils Percent Auto 1.6 % (0-2); Eosinophils Percent Auto 0.8 % (0-4); Hematocrit 32.4 % (37.0-47.0); Hemoglobin 10.9 g/dl (12.0-16.0); Imm Gran Abs Auto 0.01 X10*3/uL (0.00-0.03); Imm Gran Pct Auto 0.3 % (0.0-0.4); Lymphocytes Absolute Auto 2.1 X10*3/uL (1.2-4.9); Lymphocytes Percent Auto 57.1 % (20-40); Mean Corpuscular HGB Conc 33.6 g/dl (31.0-35.0); Mean Corpuscular Hemoglobin 37.6 pg (27.0-33.0); Mean Platelet Volume 8.8 fL (9.4-12.3); Monocytes Absolute Auto 0.3 X10*3/uL (0.1-1.2); Neutrophils Absolute Auto 1.2 x10*3/uL (2.0-8.3); Neutrophils Percent Auto 33.2 % (45-73); Platelet Count 334 X10*3/uL (160-400); Red Cell Distribution Width 14.9 % (11.0-16.0); White Blood Count 3.7 X10*3/uL (4.8-10.8)
[2024-01-03 02:03] LABS: Mean Corpuscular Volume 111.7 fL (80.0-98.0)
[2024-01-03 02:06] LABS: MANUAL DIFF FLAG SCAN
[2024-01-03 02:13] LABS: Anion Gap 16 (12-20); Blood Urea Nitrogen 13 mg/dL (9-16); Calcium 8.7 mg/dL (8.4-10.2); Carbon Dioxide 19 mmol/L (22-29); Chloride 112 mmol/L (96-108); Creatinine Clr Calc Pharmacy 103.1; Estimated Glomerular Filt Rate > 60; Ethanol 375 mg/dL; Glucose Random 90 mg/dL (60-115); Potassium 3.4 mmol/L (3.3-5.1); Sodium 144 mmol/L (135-145)
[2024-01-03 02:17] LABS: SLIDE REVIEW VERIFIED
--- NOTE | 2024-01-03 02:46 | ED.GENADULT ---
HPI - General Adult General Chief complaint: Seizure Stated complaint: SEIZURES Time Seen by Provider: 01/03/24 01:13 Source: EMS Mode of arrival: EMS Limitations: no limitations History of Present Illness ED Provider: Dr. Cohen HPI narrative: patient is known well to this ED for medication noncompliance who is an alcoholic and presents intoxicated with pseudoseizures. Patient was seen by me last week for the same. Onset (ago): hour(s) Related Data Home Medications ?Medication ?Instructions ?Recorded ?Confirmed hydroxyzine HCl 25 mg tablet 25 mg PO Q8H PRN anxiety 10/16/23 10/16/23 magnesium oxide 400 mg (241.3 mg 400 mg PO DAILY 10/16/23 10/16/23 magnesium) tablet mecobalamin (vitamin B12) 5,000 5,000 mcg PO DAILY 10/16/23 10/16/23 mcg disintegrating tablet medroxyprogesterone 150 mg/mL 150 mg IM [id number] 10/16/23 10/16/23 intramuscular suspension sertraline 50 mg tablet 50 mg PO DAILY 10/16/23 10/16/23 valacyclovir 500 mg tablet 500 mg PO DAILY 10/16/23 10/16/23 Previous Rx's ?Medication ?Instructions ?Recorded levetiracetam 1,000 mg tablet 1,000 mg PO BID #60 tabs 10/15/23 Allergies Allergy/AdvReac Type Severity Reaction Status Date / Time No Known Allergies Allergy Verified 01/03/24 00:39 [No Known Allergies*] Review of Systems Review of Systems: Yes Unobtainable due to mental status Neurologic: Denies Sensory deficit (Neuro) [facility] Past Medical History Medical History Mood disorder Social History Social History Household Members: Family Housing: House Do you presently have visiting nurse or other home services: No Alcohol intake: current Alcohol intake frequency: holidays/special occasions only Alcohol type: hard liquor Patient Tobacco Use Status: Never used Tobacco Smoked in Last 30 Days: No Use of substances other than those prescribed or required for medical reasons: No Substance Use Type: Marijuana Advance Directives: No Advance Directives Information Provided: No Patient : No service: No Physical Exam ED Vital Signs: Vital Signs - 24 hr 01/03/24 00:35 01/03/24 01:44 Temperature 98.6 F 98.3 F Pulse Rate 103 H 109 H Respiratory Rate 18 16 Blood Pressure 122/90 H 118/79 Pulse Oximetry 97 97 Oxygen Delivery Method Room Air Room Air BMI result Body Mass Index 23.5 Const Other: intoxicated female with occaisional pseudoseizure which has not postictal period Nutritional Appearance: average body habitus Orientation/consciousness: oriented to person Limitations: altered mental status and behavioral limitations HENMT Head: Yes normal to inspection Ears: external ears normal General nose exam: Normal external nose present Mouth: Normal oral and palatal mucosa present and oropharynx normal Throat: Yes posterior oropharynx normal Eyes General: appearance normal, both eyes and all related structures Neck Neck: Yes normal visual inspection Chest Chest palpation & inspection: normal inspection of the chest Resp Auscultation: clear to auscultation bilaterally Cardio Jugular venous distension: no JVD Rate: regular rate Rhythm: regular rhythm Heart sounds: S1 normal heart sound present and S2 normal heart sound present GI Inspection: Yes normal to inspection Palpation (GI): Soft to palpation, nontender and No hepatosplenomegaly present Auscultation: normal bowel sounds General: Yes no CVA tenderness Back/Spine/Pelvis Back: no CVA tenderness Skin General skin exam: no rashes or lesions noted Neuro General: oriented to person Cranial nerves: Yes CN's II-XII intact bilaterally Motor exam (neuro): 5/5 motor strength present throughout Sensory Exam: No Sensory deficit (Neuro) Extrem General: Yes normal to inspection Psych Other: intoxicated flat affect Course Reevaluation(s) Reevaluation #1: after having a pseudoseizure and not receiving any medications patient got up and tried to walk out, she now called her brother and he will pick her up Time: 02:50 Medical Decision Making Differential Diagnosis Differential Diagnoses: The differential diagnosis associated with the presentation includes (alcohol intoxication, seizures, pseudoseizures) Admission/Observation Consideration of admission/observation: Escalation of care including admission/observation considered (upon arrival patient was considered for admission) Lab Data 01/03/24 01:51 01/03/24 01:51 Labs: Lab Results 01/03/24 Range/Units 01:51 WBC 3.7 L (4.8-10.8) X10*3/uL RBC 2.90 L (4.20-5.50) X10*6/uL Hgb 10.9 L (12.0-16.0) g/dl Hct 32.4 L (37.0-47.0) % MCV 111.7 H (80.0-98.0) fL MCH 37.6 H (27.0-33.0) pg MCHC 33.6 (31.0-35.0) g/dl RDW 14.9 (11.0-16.0) % Plt Count 334 D (160-400) X10*3/uL MPV 8.8 L (9.4-12.3) fL Immature Gran % (Auto) 0.3 (0.0-0.4) % Neut % (Auto) 33.2 L (45-73) % Lymph % (Auto) 57.1 H (20-40) % [place] % (Auto) 7.0 (2-11) % Eos % (Auto) 0.8 (0-4) % Baso % (Auto) 1.6 (0-2) % Lymph # (Auto) 2.1 (1.2-4.9) X10*3/uL [place] # (Auto) 0.3 (0.1-1.2) X10*3/uL Eos # (Auto) 0.0 (0.0-0.4) X10*3/uL Baso # (Auto) 0.1 (0.0-0.2) X10*3/uL Abs Immat Gran (auto) 0.01 (0.00-0.03) X10*3/uL Absolute Neuts (auto) 1.2 L (2.0-8.3) x10*3/uL Absolute Nucleated RBC 0.000 (0.0-0.012) X10*3/uL Nucleated RBC % (auto) 0.0 (0.0-0.2) /100WBC Smear Tech's Comments VERIFIED Sodium 144 (135-145) mmol/L Potassium 3.4 (3.3-5.1) mmol/L Chloride 112 H (96-108) mmol/L Carbon Dioxide 19 L (22-29) mmol/L Anion Gap 16 (12-20) BUN 13 (9-16) mg/dL Creatinine 0.79 (0.5-1.4) mg/dL Estim Creat Clear Calc 103.1 Estimated GFR > 60 Random Glucose 90 (60-115) mg/dL Calcium 8.7 (8.4-10.2) mg/dL Ethyl Alcohol 375 H* mg/dL Independent Historian Clinical information obtained from an independent historian. History obtained from or confirmed by: EMS External Record Review External record reviewed: Outpatient record Chronic Conditions Patient?s care impacted by: Other (alcoholism) Social Determinants Patient?s care significantly limited by Social Determinants of Health including: Low income and Alcoholism and drug addiction in family Discharge Plan Discharge Clinical Impression: Seizure-like activity, Alcoholism Patient Disposition: Home, Self-Care Instructions: Nonepileptic Seizures (ED), Abuse of Alcohol (ED), Alcohol Dependence (ED) Prescriptions: No Action valacyclovir 500 mg tablet 500 mg PO DAILY magnesium oxide 400 mg (241.3 mg magnesium) tablet 400 mg PO DAILY hydroxyzine HCl 25 mg tablet 25 mg PO Q8H PRN (Reason: anxiety) sertraline 50 mg tablet 50 mg PO DAILY medroxyprogesterone 150 mg/mL suspension 150 mg IM [id number] mecobalamin (vitamin B12) 5,000 mcg tablet,disintegrating 5,000 mcg PO DAILY levetiracetam 1,000 mg tablet 1,000 mg PO BID Qty: 60 0RF Referrals: Joyce Pillai MD [Primary Care Provider] - 3 days Print Language: German
--- NOTE | 2024-01-03 03:01 | PC.NURSE ---
Pt upset, swearing, attempting to leave ED, provider Vicki made aware. Pt called brother who will pick her up.
[2024-01-03 03:02] VITALS: BP 00/00; PULSE 0; RESP 18; TEMP -17.7; TEMP 0
== END 2024-01-03 03:04 | disposition home or self-care (01) ==
PROVIDERS: Emergency Provider Emergency Medicine; PCP Student in an Organized Health Care Education/Training Program
DX: R56.9 Unspecified convulsions (principal); F10.129 Alcohol abuse with intoxication, unspecified; Y90.8 Blood alcohol level of 240 mg/100 ml or more; Z79.899 Other long term (current) drug therapy
CPT/HCPCS: 36415; 80048; 80307; 85025; 99283; 99284

== ENCOUNTER 2024-01-11 22:04 | Emergency (ER) | payer MEDICARE, MEDICAID, SELFPAY ==
--- NOTE | ~2024-01-11 | CT_ITS ---
EXAM: CT scan of the head and cervical spine. INDICATION: seizure and neck pain TECHNIQUE: A noncontrast CT scan was performed from the skull base to the vertex. A noncontrast CT scan of the cervical spine was performed from the base of the skull through T1 at 2.5 mm and 1.25 mm collimation. Coronal and sagittal reformats were obtained at the acquisition workstation. This CT examination was performed using dose optimization techniques as appropriate, variously including the following: *Automated exposure control *Adjustment of mA and/or kV according to patient size (this includes techniques or standardized protocols for targeted exams where dose is matched to indication/reason for exam; i.e. extremities or head) *Use of iterative reconstruction technique DLP: 613 mGy-cm COMPARISON: 10/16/2023 FINDINGS: Head: There is no evidence of acute intracranial hemorrhage or territorial infarction. Duval-white matter differentiation is preserved. No abnormal mass effect or midline shift. No extra-axial fluid collections. No abnormal attenuation is demonstrated within the brain parenchyma. The ventricles and sulcal spaces are proportional without hydrocephalus. Proportional prominence of the ventricles and sulcal spaces. No acute osseous or soft tissue abnormalities. The mastoid air cells and visualized portions of the paranasal sinuses are well aerated. Cervical Spine: The atlantooccipital and atlantoaxial articulations remain well aligned. Straightening of the normal cervical lordosis. Otherwise, there is anatomic alignment of the vertebral bodies and posterior elements. No evidence of acute fracture or subluxation. The vertebral body heights and disc spaces are maintained. There is no prevertebral soft tissue swelling. The thyroid gland and remaining cervical soft tissues are normal in appearance. The lung apices demonstrate no abnormalities. CT/CT cervical spine wo IV con IMPRESSION: No acute intracranial pathology. No fracture or subluxation cervical spine. Electronically signed by: Michael Moreland MD 01/11/2024 11:46 PM EDT
[2024-01-11 22:15] VITALS: BP 109/85; BP 148/76; PULSE 105; PULSE 120; RESP 20; O2SAT 96; O2SAT 99; BMI 24.4
[2024-01-11 22:59] LABS: MANUAL DIFF FLAG NO
[2024-01-11 23:00] LABS: Basophils Absolute Auto 0.1 X10*3/uL (0.0-0.2); Basophils Percent Auto 1.6 % (0-2); Eosinophils Percent Auto 0.2 % (0-4); Hematocrit 42.4 % (37.0-47.0); Hemoglobin 14.6 g/dl (12.0-16.0); Lymphocytes Absolute Auto 2.3 X10*3/uL (1.2-4.9); Lymphocytes Percent Auto 47.8 % (20-40); Mean Corpuscular HGB Conc 34.4 g/dl (31.0-35.0); Mean Corpuscular Hemoglobin 37.7 pg (27.0-33.0); Mean Corpuscular Volume 109.6 fL (80.0-98.0); Mean Platelet Volume 8.9 fL (9.4-12.3); Monocytes Absolute Auto 0.3 X10*3/uL (0.1-1.2); Monocytes Percent Auto 6.4 % (2-11); Neutrophils Absolute Auto 2.1 x10*3/uL (2.0-8.3); Platelet Count 310 X10*3/uL (160-400); Red Blood Count 3.87 X10*6/uL (4.20-5.50); Red Cell Distribution Width 14.3 % (11.0-16.0); White Blood Count 4.9 X10*3/uL (4.8-10.8)
[2024-01-11 23:05] LABS: Appearance Urine Clear; Color Urine Yellow; Glucose Urine UA Negative (Negative); Leukocyte Esterase Urine Negative (Negative); Nitrite Urine Negative (Negative); Specific Gravity - Urine 1.025 (1.005-1.025); UMIC TRIGGER UACC YES; UPreg QC Valid YES; Urine Blood Trace (Negative); Urine Ketones Negative (Negative); Urine Pregnancy NEGATIVE (NEGATIVE); Urine Protein 30 (1+) mg/dL (Neg-Trace)
[2024-01-11 23:10] LABS: Bacteria Urine 3+ (None Seen); Hyaline Casts Urine 0-2 /LPF (0-2); RBC Urine 0-2 /HPF (0-2); WBC Urine 0-5 /HPF (0-5)
[2024-01-11 23:12] LABS: Alanine Aminotransferase 276 U/L (0-31); Alkaline Phosphatase 146 U/L (39-117); Anion Gap 19 (12-20); Aspartate Amino Transferase 347 U/L (5-31); Bilirubin Total 1.5 mg/dL (0.0-1.0); Blood Urea Nitrogen 17 mg/dL (9-16); Carbon Dioxide 22 mmol/L (22-29); Chloride 104 mmol/L (96-108); Creatinine Clr Calc Pharmacy 92.6; Estimated Glomerular Filt Rate > 60; Glucose Random 88 mg/dL (60-115); Potassium 4.2 mmol/L (3.3-5.1); Sodium 141 mmol/L (135-145); Total Protein 8.7 g/dL (6.5-8.0)
--- NOTE | 2024-01-11 23:14 | ED_ITS ---
HPI - Seizure General Chief Complaint: Seizure Stated Complaint: 15 min seizure, then a 5 min seizure Time Seen by Provider: 01/11/24 22:51 Source: patient and EMS Mode of arrival: EMS Limitations: no limitations History of Present Illness ED Provider: DR. Steen HPI Narrative: 33-year-old female with known history of seizure on Keppra 500 mg b.i.d. patient stated that she is compliant with her medication stated have a neurology appointment next month, patient states that she has being going stress in life and also has been drinking alcohol that she have noticed that it triggered her seizure patient admitted to drinking alcohol last night, patient was in bed when witnessed by her daughter and brother having seizure activity did not fall down however patient is complaining of headache and neck pain. Patient feel stressed no depression, no SI. Seizure History: Yes Related Data Home Medications ?Medication ?Instructions ?Recorded ?Confirmed hydroxyzine HCl 25 mg tablet 25 mg PO Q8H PRN anxiety 10/16/23 10/16/23 magnesium oxide 400 mg (241.3 mg 400 mg PO DAILY 10/16/23 10/16/23 magnesium) tablet mecobalamin (vitamin B12) 5,000 5,000 mcg PO DAILY 10/16/23 10/16/23 mcg disintegrating tablet medroxyprogesterone 150 mg/mL 150 mg IM [id number] 10/16/23 10/16/23 intramuscular suspension sertraline 50 mg tablet 50 mg PO DAILY 10/16/23 10/16/23 valacyclovir 500 mg tablet 500 mg PO DAILY 10/16/23 10/16/23 Previous Rx's ?Medication ?Instructions ?Recorded levetiracetam 1,000 mg tablet 1,000 mg PO BID #60 tabs 10/15/23 Allergies Allergy/AdvReac Type Severity Reaction Status Date / Time No Known Allergies Allergy Verified 01/11/24 22:19 [No Known Allergies*] Review of Systems 2 Review of Systems: All other systems are reviewed and are negative Constitutional: Reports as per HPI and Reports no additional constitutional complaints Eyes: Reports as per HPI and Reports no additional eye complaints Reports system reviewed and no additional complaints, except as documented Cardiovascular: Reports as per HPI and Reports no additional cardiovascular complaints Respiratory: Reports as per HPI and Reports no additional respiratory complaints Gastrointestinal: Reports as per HPI and Reports no additional gastrointestinal complaints Genitourinary: Reports no additional female genitourinary complaints Musculoskeletal: Reports no additional musculoskeletal complaints Skin/Breast: Reports system reviewed and no additional complaints, except as docu Psychiatric: Reports no additional psychiatric complaints Endocrine: Reports no additional endocrine complaints Hematologic/Lymphatic: Reports no additional hematologic/lymphatic complaints Allergic/Immunologic: Reports no additional allergic/immunologic complaints Reports system reviewed and no additional complaints, except as documented and Reports Abnormal speech present [facility] Past Medical History Medical History Mood disorder Social History Social History Household Members: Family Housing: House Do you presently have visiting nurse or other home services: No Alcohol intake: current Alcohol intake frequency: a few times a month Alcohol type: hard liquor Patient Tobacco Use Status: Never used Tobacco Smoked in Last 30 Days: No Use of substances other than those prescribed or required for medical reasons: No Substance Use Type: Marijuana Advance Directives: No Advance Directives Information Provided: No Do you have a plan to hurt others: No Plan Patient : No service: No Physical Exam 2 Vital Signs: Vital Signs: Last Vital Signs Pulse 105 H 01/11/24 22:15 Resp 20 01/11/24 22:15 BP 109/85 01/11/24 22:15 Pulse Ox 99 01/11/24 22:15 O2 Del Method Room Air 01/11/24 22:15 BMI result Body Mass Index 24.4 Vital signs have been reviewed and appear to be correct. Blood pressure elevated. Heart rate normal. Respiratory rate normal. Temperature normal. Oxygen saturation normal. Appearance: Alert. Oriented X3. No acute distress. Head: Normal external exam. Normocephalic. Atraumatic. No Pena signs noted. No raccoon eyes noted Eyes: PERRLA. EOMI. Conjunctiva and sclera normal. Eyelids normal. ENT: TM's Normal. Pharynx normal. Uvula midline. Moist mucous membranes. No trismus noted. No drooling noted. No muffled voice noted. Neck: Normal inspection. Neck supple. FROM. No adenopathy. Thyroid Normal. No meningeal signs. No neck mass noted. CVS: Normal heart rate and rhythm. Heart sound normal. No murmurs noted. Pulses normal throughout. Respiratory: No respiratory distress. Painless inspiration. Breath sounds normal. No wheezes/rales/rhonchi noted. Chest nontender. No accessory muscle usage noted or decreased air movement noted. Abdomen: Soft and nontender. Bowel sounds normal in all 4 quadrants. No distention noted. No organomegaly noted. No visible injury noted. Back: No CVA tenderness. Full range of motion noted. Skin: Skin warm and dry. Normal skin color. Normal skin turgor. No rashes/lesions/lacerations noted. Extremities: No lower extremity edema. Extremities exhibit normal range of motion. Extremities nontender. Neuro: Oriented X 3. Cranial nerve exam: II-XII are grossly intact No motor deficit. No sensory deficit. Reflexes normal. Patient Orientation: Person, Place, Time and Situation, okay hygiene and grooming. Fair eye contact, attentive, no tics or tremors. Level of Consciousness: Awake, Appropriate and Alert Patient Behavior: Appropriate, Guarded, Cooperative and Anxious Mood Description: Constricted, Blunted and Apprehensive Affect Description: Constricted, Blunted and Apprehensive Patient Cognition Impaired: No Ability to Follow Directions: Excellent Speech Pattern: Clear, Appropriate and Spontaneous Speech, nonpressured, spontaneous with regular rate and rhythm, normal volume and prosody. No dysarthria. Memory Description: Intact, Immediate Intact and Short Term Intact Hallucinations: None Delusions: Not Present Thought Process: Intact Thought Content: positive for Intact, positive for Logical, denies Suicidal Ideation and denies Homicidal Ideation. Depressive Symptoms: Not present. Judgement and Insight: Limited but adequate. Course Reevaluation(s) Reevaluation #1: History of seizure taking her Keppra patient is compliant with her medication, stated that it get triggered by drinking alcohol admitted to drinking alcohol last night. Normal neuro exam with GCS 15- head/cervical spine CT. Patient was instructed to refrain from drinking alcohol. Chronic transaminitis, patient has no abdominal pain. Time: 03:00 Medical Decision Making Differential Diagnosis Differential Diagnoses: The differential diagnosis associated with the presentation includes (Closed head injury, alcohol intoxication, electrolyte derangement, severe anemia, UTI, .) Admission/Observation Consideration of admission/observation: Escalation of care including admission/observation considered Lab Data MDM Lab Attestation statement: I reviewed the patient's lab results. 01/11/24 22:45 01/11/24 22:45 Labs: Lab Results 01/11/24 01/11/24 Range/Units 22:45 22:50 WBC 4.9 (4.8-10.8) X10*3/uL RBC 3.87 L D (4.20-5.50) X10*6/uL Hgb 14.6 D (12.0-16.0) g/dl Hct 42.4 D (37.0-47.0) % MCV 109.6 H (80.0-98.0) fL MCH 37.7 H (27.0-33.0) pg MCHC 34.4 (31.0-35.0) g/dl RDW 14.3 (11.0-16.0) % Plt Count 310 (160-400) X10*3/uL MPV 8.9 L (9.4-12.3) fL Immature Gran % (Auto) 0.0 (0.0-0.4) % Neut % (Auto) 44.0 L (45-73) % Lymph % (Auto) 47.8 H (20-40) % Andrew % (Auto) 6.4 (2-11) % Eos % (Auto) 0.2 (0-4) % Baso % (Auto) 1.6 (0-2) % Lymph # (Auto) 2.3 (1.2-4.9) X10*3/uL Andrew # (Auto) 0.3 (0.1-1.2) X10*3/uL Eos # (Auto) 0.0 (0.0-0.4) X10*3/uL Baso # (Auto) 0.1 (0.0-0.2) X10*3/uL Abs Immat Gran (auto) 0.00 (0.00-0.03) X10*3/uL Absolute Neuts (auto) 2.1 (2.0-8.3) x10*3/uL Absolute Nucleated RBC 0.000 (0.0-0.012) X10*3/uL Nucleated RBC % (auto) 0.0 (0.0-0.2) /100WBC Sodium 141 (135-145) mmol/L Potassium 4.2 D (3.3-5.1) mmol/L Chloride 104 (96-108) mmol/L Carbon Dioxide 22 (22-29) mmol/L Anion Gap 19 (12-20) BUN 17 H (9-16) mg/dL Creatinine 0.88 (0.5-1.4) mg/dL Estim Creat Clear Calc 92.6 Estimated GFR > 60 Random Glucose 88 (60-115) mg/dL Calcium 9.0 (8.4-10.2) mg/dL Total Bilirubin 1.5 H (0.0-1.0) mg/dL AST 347 H (5-31) U/L ALT 276 H (0-31) U/L Alkaline Phosphatase 146 H (39-117) U/L Total Protein 8.7 H (6.5-8.0) g/dL Albumin 5.0 (3.5-5.0) g/dL Urine Color Yellow Urine Appearance Clear Urine pH 6.0 (5.0-9.0) Ur Specific [place] 1.025 (1.005-1.025) Urine Protein 30 (1+) H (Neg-Trace) mg/dL Urine Glucose (UA) Negative (Negative) mg/dL Urine Ketones Negative (Negative) mg/dL Urine Blood Trace H (Negative) Urine Nitrite Negative (Negative) Ur Leukocyte Esterase Negative (Negative) Urine RBC 0-2 (0-2) /HPF Urine WBC 0-5 (0-5) /HPF Ur Squamous Epith Cells 3-5 (0-2) /HPF Urine Bacteria 3+ (None Seen) Hyaline Casts 0-2 (0-2) /LPF Urine Test NEGATIVE (NEGATIVE) Independent Interpretation I performed an independent interpretation of an: CT Scan (Head/cervical spine CT: No acute intracranial/cervical spine pathology.) Radiology Impression Discussion of test interpretation with radiology: I have reviewed the radiologist's reading. Discharge Plan Discharge Clinical Impression: Seizure disorder Patient Disposition: Home, Self-Care Instructions: Recurrent Seizures in Adults (ED) Additional Instructions: Follow-up with your neurologist as scheduled. Refrain from drinking alcohol. Prescriptions: No Action valacyclovir 500 mg tablet 500 mg PO DAILY magnesium oxide 400 mg (241.3 mg magnesium) tablet 400 mg PO DAILY hydroxyzine HCl 25 mg tablet 25 mg PO Q8H PRN (Reason: anxiety) sertraline 50 mg tablet 50 mg PO DAILY medroxyprogesterone 150 mg/mL suspension 150 mg IM [id number] mecobalamin (vitamin B12) 5,000 mcg tablet,disintegrating 5,000 mcg PO DAILY levetiracetam 1,000 mg tablet 1,000 mg PO BID Qty: 60 0RF Print Language: Lao
[2024-01-12 00:29] VITALS: BP 109/85; PULSE 105; RESP 20; TEMP 36.6; O2SAT 99
== END 2024-01-12 00:29 | disposition home or self-care (01) ==
PROVIDERS: Emergency Provider Emergency Medicine
DX: G40.909 Epilepsy, unspecified, not intractable, without status epilepticus (principal); R51.9 Headache, unspecified; M54.2 Cervicalgia; Z79.899 Other long term (current) drug therapy
CPT/HCPCS: 36415; 70450; 72125; 80053; 80177; 81001; 81025; 85025; 99284